=== PATIENT | female | born 1955 | race Caucasian/White ===

== ENCOUNTER 2023-07-17 08:24 | Outpatient (OUT) | payer MEDICARE, BC, SELFPAY ==
[2023-07-17 08:37] LABS: Basophils Percent Auto 0.5 % (0.2-2.0); Eosinophils Absolute Auto 0.1 10^3/uL (0.0-0.7); Eosinophils Percent Auto 0.9 % (0.9-7.0); Immature Granulocytes Abs Auto 0.02 10^3/uL (0.00-0.03); Immature Granulocytes Pct Auto 0.2 % (0.0-0.5); Lymphocytes Absolute Auto 3.8 10^3/uL (1.2-3.8); Lymphocytes Percent Auto 43.5 % (20.5-60.0); Mean Corpuscular HGB Conc 32.6 g/dL (29.9-35.2); Mean Corpuscular Hemoglobin 30.8 pg (26.7-34.0); Mean Corpuscular Volume 94.5 fL (81.0-99.0); Monocytes Absolute Auto 0.9 10^3/uL (0.3-0.8); Monocytes Percent Auto 9.9 % (1.7-12.0); Platelet Count 252 10^3/uL (150-450); Red Blood Count 4.55 10^6/uL (4.20-5.40); Red Cell Distribution Width 12.9 % (11.0-15.0); White Blood Count 8.8 10^3/uL (4.0-11.0)
--- NOTE | 2023-07-17 08:37 | MM_ITS ---
Patient: SAGAR LOZA Exam Date: 07/17/2023 : 1955 Gender:F Ordering : DR. NAIF JACOBS . Admission #: [id number] Family : Order #: [id number] CLICK HERE TO VIEW EXAM RADIOLOGY REPORT PROCEDURE: MM TOMOSYNTHESIS SCREENING BI COMPARISON: MG MAMM SCREEN 3D LUCAS CAD, 07/10/2022. MG MAMM SCREEN 3D LUCAS CAD, 07/06/2021. MG MAMM SCREEN LUCAS W CAD, 06/22/2020. MG MAMM LUCAS SCRN W CAD DIG, 02/17/2014. INDICATIONS: Screening Calculator Name NCI Breast Cancer Risk Assessment Tool 5 Year Breast Cancer Risk 3.20% Lifetime Breast Cancer Risk 9.10% Personal Breast Cancer No Personal Ovarian Cancer No Treatments None Family Cancers Sister with breast cancer at age 64. LOCATION: [facility] BREAST COMPOSITION: Almost entirely fatty. FINDINGS: DIAGNOSTIC CATEGORY 1--NEGATIVE. RIGHT BREAST: No significant suspicious finding. No significant change has occurred. LEFT BREAST: No significant suspicious finding. No significant change has occurred. RECOMMENDATIONS: ROUTINE MAMMOGRAM AND CLINICAL EVALUATION IN 12 MONTHS. PLEASE NOTE: A NORMAL MAMMOGRAM DOES NOT EXCLUDE THE POSSIBILITY OF BREAST CANCER. A CLINICALLY SUSPICIOUS PALPABLE LUMP SHOULD BE BIOPSIED. Dictated by: Arie Hartley M.D. on 07/17/2023 at 15:41 Approved by: Arie Hartley M.D. on 07/17/2023 at 15:44
[2023-07-17 09:36] LABS: Alanine Aminotransferase 18 U/L (14-59); Albumin Level 3.7 g/dL (3.4-5.0); Alkaline Phosphatase 59 U/L (46-116); Anion Gap 8.7; Aspartate Amino Transferase 16 U/L (15-37); BUN Creatinine Ratio 9.2; Bilirubin Total 0.4 mg/dL (0.2-1.0); Calcium 9.2 mg/dL (8.5-10.1); Carbon Dioxide 31.9 mmol/L (21.0-32.0); Chloride 100 mmol/L (98-107); Chol HDL Ratio 2.8; Cholesterol 141 mg/dL (<=200); Estimated GFR (African America 54 (>=60); Estimated GFR (Non-African Ame 45 (>=60); Globulin 3.7 g/dL; Glucose 100 mg/dL (74-106); HDL Cholesterol 51 mg/dL (40-60); Potassium 3.6 mmol/L (3.5-5.1); Sodium 137 mmol/L (136-145); Total Protein 7.4 g/dL (6.4-8.2); Triglycerides 105 mg/dL (<=150)
== END 2023-07-17 08:25 | disposition home or self-care (01) ==
LOC: LAB 08:24
PROVIDERS: PCP Family Medicine; Visit Provider Family Medicine
DX: Z00.00 Encounter for general adult medical examination without abnormal findings (principal); I48.91 Unspecified atrial fibrillation; I10 Essential (primary) hypertension; Z12.31 Encounter for screening mammogram for malignant neoplasm of breast; Z80.3 Family history of malignant neoplasm of breast
CPT/HCPCS: 36415; 77063; 77067; 80053; 80061; 83735; 85025

== ENCOUNTER 2024-07-20 08:42 | Outpatient (OUT) | payer MEDICARE, BC, SELFPAY ==
--- NOTE | 2024-07-20 | MM_ITS ---
Patient Name: SAGAR LOZA MR#: [id number] : 1955 Exam Date: 07/20/2024 Ordering Doctor: DR. NAIF JACOBS . RADIOLOGY REPORT PROCEDURE: MM TOMOSYNTHESIS SCREENING BI COMPARISON: MG MAMM SCREEN 3D LUCAS CAD, 07/10/2022. MM TOMOSYNTHESIS SCREENING BI, 07/17/2023. INDICATIONS: SCREENING Calculator Name NCI Breast Cancer Risk Assessment Tool 5 Year Breast Cancer Risk 3.20% Lifetime Breast Cancer Risk 8.70% Personal Breast Cancer No Personal Ovarian Cancer No Treatments None Family Cancers Sister with breast cancer at age 64. LOCATION: [facility] BREAST COMPOSITION: The breasts are almost entirely fatty. FINDINGS: DIAGNOSTIC CATEGORY 1--NEGATIVE. NO CHANGE FROM COMPARISON ASSESSMENT. Scattered benign-appearing calcifications are present. Scattered benign-appearing lymph nodes are present. RIGHT BREAST: No significant suspicious finding. LEFT BREAST: No significant suspicious finding. RECOMMENDATIONS: ROUTINE MAMMOGRAM AND CLINICAL EVALUATION IN 12 MONTHS. PLEASE NOTE: A NORMAL MAMMOGRAM DOES NOT EXCLUDE THE POSSIBILITY OF BREAST CANCER. A CLINICALLY SUSPICIOUS PALPABLE LUMP SHOULD BE BIOPSIED. Dictated by: Naun Roldan MD on 07/20/2024 at 12:43 Approved by: Naun Roldan MD on 07/20/2024 at 12:44
[2024-07-20 10:22] LABS: Alanine Aminotransferase 23 U/L (14-59); Albumin Level 3.6 g/dL (3.4-5.0); Alkaline Phosphatase 56 U/L (46-116); Anion Gap 11.9; Aspartate Amino Transferase 22 U/L (15-37); BUN Creatinine Ratio 11.9; Bilirubin Total 0.5 mg/dL (0.2-1.0); Calcium 8.9 mg/dL (8.5-10.1); Chloride 104 mmol/L (98-107); Chol HDL Ratio 2.8; Cholesterol 152 mg/dL (<=200); Estimated GFR (African America >60 (>=60); Estimated GFR (Non-African Ame 54 (>=60); Globulin 3.6 g/dL; Glucose 102 mg/dL (74-106); HDL Cholesterol 55 mg/dL (40-60); Potassium 3.9 mmol/L (3.5-5.1); Sodium 141 mmol/L (136-145); Total Protein 7.2 g/dL (6.4-8.2); Triglycerides 80 mg/dL (<=150)
== END 2024-07-20 08:43 | disposition home or self-care (01) ==
LOC: MAMMO 08:42
PROVIDERS: PCP Family Medicine; Visit Provider Family Medicine
DX: Z12.31 Encounter for screening mammogram for malignant neoplasm of breast (principal); Z13.6 Encounter for screening for cardiovascular disorders; I10 Essential (primary) hypertension; Z80.3 Family history of malignant neoplasm of breast
CPT/HCPCS: 36415; 77063; 77067; 80053; 80061

== ENCOUNTER 2024-09-13 08:55 | Outpatient (OUT) | payer MEDICARE, BC, SELFPAY ==
[2024-09-13 09:50] LABS: Anion Gap 13.4; BUN Creatinine Ratio 11.4; Calcium 9.2 mg/dL (8.5-10.1); Carbon Dioxide 29.6 mmol/L (21.0-32.0); Chloride 104 mmol/L (98-107); Estimated GFR (African America 57 (>=60 mL/min/1.73m^2); Estimated GFR (Non-African Ame 47 (>=60 mL/min/1.73m^2); Glucose 106 mg/dL (74-106); Sodium 143 mmol/L (136-145)
== END 2024-09-13 08:56 | disposition home or self-care (01) ==
LOC: LAB 08:55
DX: I48.91 Unspecified atrial fibrillation (principal)
CPT/HCPCS: 36415; 80048

== ENCOUNTER 2025-07-27 08:52 | Outpatient (OUT) | payer MEDICARE, BC, SELFPAY ==
--- OUTSIDE RECORDS SUMMARY | 2025-07-27 08:54 | XMS_ITS | Encounter Summary ---
Author Organization [employer] Address [facility] [id number] [address] [place] [address] Care Team Providers Care Bottling Line Operator Name Role Phone Trina Hansen MD Primary Care Provider [phone] Encounter Details Date Type Department Care Team (Late st Contact Info) Description 10/15/2021 Orders Only [facility] [address] [facility] [address] [place] [id number] External, Scanning Provider Social History Tobacco Use Types Packs/Day Years Used Date Smoking Tobacco: Former Smokeless Tobacco: Never Alcohol Use Standard Drinks/Week Comments Yes 0 (1 standard drink = 0.6 oz pur e alcohol) moderate Childcare Answer Date Recorded Childcare Unknown 04/12/2019 Employment Answer Date Recorded Employment Unknown 04/12/2019 Purpose - Life Answer Date Recorded Purpose and direction in life Unknown Comments No Sex and Gender Information Value Date Recorded Sex Assigned at Not on file Legal Sex Female 11:57 AM EDT Gender Identity Not on file Sexual Orientation Not on file COVID-19 Exposure Response Date Recorded In the last month, have you been in contact with someone who was confirmed or suspected to have Coronavirus / COVID-19? No / Unsure 10/16/2021 9:38 AM EST documented as of this encounter Plan of Treatment Not on file documented as of this encounter Procedures Procedure Name Priority Date/Time Associated Diagnosis Comments MULTIPLE LABS Routine 07/06/2021 documented in this encounter Results * Multiple labs (07/06/2021) 07/06/2021 us Scanning Provider External [place] [facility] Final Result MANUALLY TRANSCRIBED RESULTS documented in this encounter Visit Diagnoses Not on filedocumented in this encounter Care Teams Bottling Line Operator Relationship Specialty Start Date End Date Trina Hansen MD PCP - General Family Medicine 07/31/17 documented as of this encounter
--- OUTSIDE RECORDS SUMMARY | 2025-07-27 08:54 | XMS_ITS | Clinical Summary ---
Author Organization [employer] [facility] Address [id number] [address] [place] [address] Care Team Providers Care Associate Material Handler Name Role Phone Trina Hansen MD Primary Care Provider [phone] Allergies Active Allergy Reactions Criticality Noted Date Comments Penicillins 07/07/2015 Other reaction(s): Intolerance-unknown Medications cetirizine (ZyrTEC) 10 mg tablet Take 10 mg by mouth daily. Active atorvastatin (LIPITOR) 10 mg tablet Take 10 mg by mouth daily. Active acetaminophen (TYLENOL) 325 mg tablet Take 650 mg by mouth every 6 (six) hours as needed. Active multivitamin tablet,chewable daily. Acti ve bisoprolol-hydroC HLOROthiazide (ZIAC) 5-6.25 mg per tablet Take 1 tablet by mouth every morning before breakfast. 8 Active glucosamine/methy lsulfonylmeth (GLUCOSAMINE MSM ORAL) Take 1,500 mg by mouth daily. Active apixaban (ELIQUIS) 5 mg tabletIndications :Paroxysmal atrial fibrillation (CMS-HCC),Encount er for therapeutic drug monitoring Take 1 tablet (5 mg total) by mouth every 12 (twelve) hours. 180 tablet 2 3 Active apixaban (ELIQUIS) 5 mg tabletIndications :Paroxysmal atrial fibrillation (CMS-HCC),Encount er for therapeutic drug monitoring Take 1 tablet (5 mg total) by mouth every 12 (twelve) hours. 180 tablet 3 3 Active Active Problems Problem Noted Date Diagnosed Date CHANDA (obstructive sleep apnea) 10/15/2022 Paroxysmal atrial fibrillation 08/09/2019 Cerebrovascular disease 07/11/2015 Status post placement of implantable loop record er 07/07/2015 Class 2 obesity in adult Family History Medical History Relation Name Comments Heart disease Father Relation Name Status Comments Father Mother Social History Tobacco Use Types Packs/Day Years Used Date Smoking Tobacco: Former Smokeless Tobacco: Never Tobacco Cessation:Counseling Given: Not Answered Alcohol Use Standard Drinks/Week Comments Yes 0 (1 standard drink = 0.6 oz pur e alcohol) moderate Childcare Answer Date Recorded Childcare Unknown 04/12/2019 Employment Answer Date Recorded Employment Unknown 04/12/2019 Hunger Screening Answer Date Recorded Within the past 12 months we worried whether our food would run out before we got money to buy more. Never True 10/15/2022 Within the past 12 months th e food we bought just didn't last and we didn't have money to get more. Never True 10/15/2022 Purpose - Life Answer Date Recorded Purpose and direction in life Unknown Comments No Sex and Gender Information Value Date Recorded Sex Assigned at Not on file Legal Sex Female 11:57 AM EDT Gender Identity Not on file Sexual Orientation Not on file Last Filed Vital Signs Vital Sign Reading Time Taken Comments Blood Pressure 132/76 10/15/2022 2:34 PM EST Pulse 84 10/15/2022 2:34 PM EST Temperature - - Respiratory Rate 16 10/14/2018 10:1 1 AM EST Oxygen Saturation 96% 10/15/2022 2:34 PM EST Inhaled Oxygen Concentration - - Weight 104.6 kg (230 lb 9.6 oz) 10/15/2022 2:34 PM EST Height 160 cm (5' 3 ) 10/15/2022 2:34 PM EST Body Mass Index 40.85 10/15/2022 2:34 PM EST Plan of Treatment Health Maintenance Due Date Last Done Comments Depression Screening 1967 Tobacco Screening 1967 DTaP,Tdap and Td Vaccines (1 - Tdap) 1972 Fall Risk Screening 2018 Adult BMI Screening 10/15/2023 10/15/2022 COVID-19 Vaccine (6 2024-2 6 season) 2025 08/02/2022, 02/05/2022, 07/31/2021, Additional history exists Influenza Vaccine 07/04/2025 08/21/2021, , 07/28/2019, Additional history exists Zoster (Shingles) Vaccine Completed 2019, 05/19/2020, 04/20/2014 Medical Devices Not on file Insurance MEDICARE Care Teams Associate Material Handler Relationship Specialty Start Date End Date Trina Hansen MD PCP - General Family Medicine 07/31/17
--- OUTSIDE RECORDS SUMMARY | 2025-07-27 08:54 | XMS_ITS | Encounter Summary ---
Author Organization [facility] [employer] [facility] [employer] Address [id number] [address] [place] [address] Care Team Providers Care Lead Pressman [employer] Name Role Phone Trina Hansen MD Primary Care Provider [phone] Encounter Details Date Type Department Care Team (Late st Contact Info) Description 10/18/2021 Orders Only [facility] [address] [place] [phone] External, Scanning Provider Social History Tobacco Use [...] this encounter Results * Multiple labs (07/06/2021) us Scanning Provider External [place] [facility] Final Result MANUALLY TRANSCRIBED RESULTS documented in this encounter Visit Diagnoses Not on filedocumented in this encounter Care Teams Lead Pressman [employer] Relationship Specialty Start Date End Date Trina Hansen MD PCP - General Family Medicine 07/31/17 documented as of this encounter
--- OUTSIDE RECORDS SUMMARY | 2025-07-27 08:54 | XMS_ITS | Patient Health Record ---
Author Organization [facility] [place] Address [address] [place] [address] Care Team Providers Care Cdl Truck Driver Name Role Phone Tryone PEPPER, Trina Primary Care Provider Unavailabl e Reason For Referral No Information Plan Of Treatment No Information Insurance Providers Payer Name Payer Address Payer Phone Subscriber Number Group Number Insured Name Patient Relationship to Insured Coverage Start Date Coverage End Date [employer] [address] [place] [address] [id number] Balwinder Mcdaniel Spouse - patient is the spouse of the insured
--- OUTSIDE RECORDS SUMMARY | 2025-07-27 08:54 | XMS_ITS | Encounter Summary ---
Author Organization [employer] Address [id number] [address] [place] [address] Care Team Providers Care Supervisor [place] Name Role Phone Trina Hansen MD Primary Care Provider [phone] Encounter Details Date Type Department Care Team (Late st Contact Info) Description 08/12/2022 Orders Only [facility] [address] [place] [address] External, Scanning Provider Social History Tobacco Use [...] on file Sexual Orientation Not on file documented as of this encounter Plan of Treatment Not on file documented as of this encounter Procedures Procedure Name Priority Date/Time Associated Diagnosis Comments MULTIPLE LABS Routine 07/10/2022 LIPID PROFILE Routine 07/10/2022 documented in this encounter Results * Lipid profile (07/10/2022) External Cholesterol 161 MANUALLY TRANSCRIBED RESULTS External Cholesterol:Hdl 3.1 MANUALLY TRANSCRIBED RESULTS External Hdl Cholesterol 52 MANUALLY TRANSCRIBED RESULTS External Ldl (Calc) 86 MANUALLY TRANSCRIBED RESULTS External Triglycerides 112 MANUALLY TRANSCRIBED RESULTS External Very Low Lipoprotein 22 MANUALLY TRANSCRIBED RESULTS us Scanning Provider External LAB BLOOD ORDERABLES Edited Result - Final MANUALLY TRANSCRIBED RESULTS * Multiple labs (07/10/2022) us Scanning Provider External [place] [facility] Final Result Performing Organization Address [facility] Co de Phone Number MANUALLY TRANSCRIBED RESULTS documented in this encounter Visit Diagnoses Not on filedocumented in this encounter Care Teams Supervisor [place] Relationship Specialty Start Date End Date Trina Hansen MD PCP - General Family Medicine 07/31/17 documented as of this encounter
--- NOTE | 2025-07-27 08:56 | MM_ITS ---
Patient Name: SAGAR LOZA MR#: [id number] : 1955 Exam Date: 07/27/2025 Ordering Doctor: JYOTI MCDONALD . RADIOLOGY REPORT PROCEDURE: MM TOMOSYNTHESIS SCREENING BI COMPARISON: MM TOMOSYNTHESIS SCREENING BI, 07/20/2024. MM TOMOSYNTHESIS SCREENING BI, 07/17/2023. MG MAMM SCREEN 3D LUCAS CAD, 07/10/2022. MG MAMM LUCAS SCRN W CAD DIG, 02/17/2014. INDICATIONS: Screening Calculator Name NCI Breast Cancer Risk Assessment Tool 5 Year Breast Cancer Risk 3.20% Lifetime Breast Cancer Risk 8.30% Personal Breast Cancer No Personal Ovarian Cancer No Treatments None Family Cancers Sister with breast cancer at age 64. LOCATION: [facility] BREAST COMPOSITION: The breasts are almost entirely fatty. FINDINGS: RIGHT BREAST: No significant suspicious finding. Benign-appearing calcifications are present. LEFT BREAST: No significant suspicious finding. Benign-appearing calcifications are present. DIAGNOSTIC CATEGORY 2--BENIGN FINDING. NO CHANGE FROM COMPARISON. RECOMMENDATIONS: ROUTINE MAMMOGRAM AND CLINICAL EVALUATION IN 12 MONTHS. Dictated by: Fortunato Lacy MD on 07/27/2025 at 11:20 Approved by: Fortunato Lacy MD on 07/27/2025 at 11:27
--- OUTSIDE RECORDS SUMMARY | 2025-07-27 08:56 | XMS_ITS | CCD ---
Author Organization [facility] Care Team Providers Care Shutdown Coordinator Name Role Phone ALICJA, DR MAURICE Gutierrez Primary Care Unavailable ALICJA, DR MAURICE Gutierrez Admitting Unavailable HELM, DR MAURICE Gutierrez Attending Unavailable HELM, DR MAURICE Gutierrez Primary Care Unavailable HELM, DR MAURICE Gutierrez Admitting Unavailable HELM, DR MAURICE Gutierrez Attending Unavailable HELM, DR MAURICE Gutierrez Attending Unavailable HELM, DR MAURICE Gutierrez Consulting Unavailable ALICJA, DR MAURICE Gutierrez Primary Care Unavailable ALICJA, DR MAURICE Gutierrez Admitting Unavailable Gopal Yates. Primary Care Physician [phone] Essence Prather Attending Unavailable CrescencioEssence alvarez Admitting Unavailable Gopal Yates Attending Unavailable Gopal Yates Attending Unavailable Gopal Yates Attending Unavailable Gopal Yates Attending Unavailable CrescencioEssence Attending Unavailable CrescencioEssence Attending Unavailable CrescencioEssence Attending Unavailable CrescencioEssence Attending Unavailable NONE, XXXX Referring Unavailable Kirit Degroot Admitting Unavailable Kirit Degroot Attending Unavailable Roger Hdz Attending Unavailable Gopal Yates Referring Unavailable Essence Prather Admitting Unavailable Essence Prather Attending Unavailable Gopal Yates Attending Unavailable Allergies Allergy Classification Reported Allergen(s) Allergy Type Date of Onset Reaction(s) Facility (5 sources) Penicillin; Translations: [penicillin] Drug Allergy Eruption of skin (disorder) [facility] Repository Medications Current Medications Medication Drug Class(es) Dates Sig (Normalized) Sig (Original) apixaban 5 mg oral tablet (2 sources) Factor Xa Inhibitor Start: 08-17-2024 take 1 tablet by mouth twice daily Eliquis 5 mg oral tablet See Instructions, TAKE 1 TABLET BY MOUTH TWICE DAILY, # 180 tab(s), Refills(s) 1, Pharmacy: [facility], 163, cm, 10/15/24 13:57:00 EDT, Height/Length Dosing, 112.2, kg, 08/17/24 13:57:00 EDT, Weight Dosing Start Date: 08/17/24 Status: Ordered Start: 12-02-2023 take 1 tablet by norah th twice daily Eliquis 5 mg oral tablet See Instructions, TAKE 1 TABLET BY MOUTH TWICE DAILY, # 180 tab(s), Refills(s) 3, Pharmacy: [facility], 163, cm, 07/14/23 16:21:00 EDT, Height/Length Dosing, 105, kg, 07/14/23 16:21:00 EDT, Weight Dosing Start Date: 12/02/23 Status: Ordered atorvastatin 10 mg oral tablet (2 sources) HMG-CoA Reductase Inhibitor Start: 08-17-2024 take 1 tablet by mouth once daily atorvastatin 10 mg Tab 10 mg = 1 tab(s), Oral, Daily, # 90 tab(s), Refills(s) 1, Pharmacy: [facility], 163, cm, 08/17/24 13:57:00 EDT, Height/Length Dosing, 112.2, kg, 08/17/24 13:57:00 EDT, Weight Dosing Start Date: 08/17/24 Status: Ordered Start: 02-03-2024 take 1 tablet by [facility] once daily atorvastatin 10 mg Tab 10 mg = 1 tab(s), Oral, Daily, # 90 tab(s), Refills(s) 4, Pharmacy: [facility], 163, cm, 07/14/23 16:21:00 EDT, Height/Length Dosing, 105, kg, 07/14/23 16:21:00 EDT, Weight Dosing Start Date: 02/03/24 Status: Ordered bisoprolol fumarate 5 mg / hydroCHLOROthiazide 6.25 mg oral tablet (2 sources) Thiazide Diuretic, beta-Adrenergic Loree Start: 08-17-2024 take 1 tablet by mouth once daily bisoprolol-hydrochlorothiazide 5 mg-6.25 mg Tab 1 tab(s), Oral, Daily, 90 tab(s), Refill(s) 1, [facility], 163, cm, 08/17/24 13:57:00 EDT, Height/Length Dosing, 112.2, kg, 08/17/24 13:57:00 EDT, Weight Dosing Start Date: 08/17/24 Status: Ordered Start: 08-11-2023 take 1 tablet by norah once daily bisoprolol-hydrochlorothiazide 5 mg-6.25 mg Tab 1 tab(s), Oral, Daily, 90 tab(s), Refill(s) 4, [facility], 163, cm, 07/14/23 16:21:00 EDT, Height/Length Dosing, 105, kg, 07/14/23 16:21:00 EDT, Weight Dosing Start Date: 08/11/23 Status: Ordered Zyrtec (2 sources) Histamine-1 Receptor Antagonist Start: 07-14-2023 Zyrtec 10 mg, Daily, Refills(s) 0 Start Date: 07/14/23 Status: Ordered Chondroitin Sulfates / Glucosamine (2 sources) Start: 07-14-2023 take 1 capsule by mouth twice daily Chondroitin-Gluco samine 1 cap(s), Oral, BID, Refill(s) 0 Start Date: 07/14/23 Status: Ordered losartan potassium 25 mg oral tablet (2 sources) Angiotensin 2 Receptor Loree Start: 09-15-2024 take 1 tablet by mouth once daily losartan 25 mg Tab 25 mg = 1 tab(s), Oral, Daily, # 90 tab(s), Refills(s) 3, Pharmacy: [facility], 163, cm, 09/15/24 9:07:00 EST, Height/Length Dosing, 111.2, kg, 09/15/24 9:07:00 EST, Weight Dosing Start Date: 09/15/24 Status: Ordered Start: 08-13-2024 take 1 tablet by norah once daily losartan 25 mg Tab 25 mg = 1 tab(s), Oral, Daily, # 30 tab(s), Refills(s) 3, Pharmacy: [facility], 163, cm, 08/13/24 13:04:00 EDT, Height/Length Dosing, 111.4, kg, 08/13/24 13:04:00 EDT, Weight Dosing Start Date: 08/13/24 Status: Ordered Multi Vitamin+ (2 sources) Start: 07-14-2023 Multi Vitamin+ 1, Daily, Refill(s) 0 Start Date: 07/14/23 Status: Ordered Problems Problem Classification Problem Date Documented Da te Episodic/Chronic Cardiac dysrhythmias (4 sources) Unspecified atrial fibrillation; Translations: [Atrial fibrillation] Onset: 07-18-2022 04-29-2023 Chronic Chronic kidney disease (4 sources) Chronic kidney disease stage 3; Translations: [Chronic kidney disease, stage 3 unspecified] Onset: 09-14-2024 07-17-2023 Chronic Comment on above: liked HTN with CKD p er OP CDI policy. Disorders of lipid metabolism (1 source) Hyperlipidemia, unspecified; Translations: [HYPERLIPIDEMIA UNSPECIFIED] Onset: 07-18-2022 Chronic Essential hypertension (4 sources) Essential (primary) hypertension; Translations: [Essential hypertension] Onset: 07-18-2022 Chronic Hypertension with complications and secondary hypertension (1 source) Chronic kidney disease due to hypertension; Translations: [Hypertensive chronic kidney disease with stage 1 through stage 4 chronic kidney disease, or unspecified chronic kidney disease] Onset: 09-14-2024 Chronic Other circulatory disease (1 source) Personal history of transient ischemic attack (TIA), and cerebral infarction without residual deficits; Translations: [PERS HX TIA AND CI NO RESID DEFICIT] Onset: 07-18-2022 Episodic Other nutritional; endocrine; and metabolic disorders (2 sources) Body mass index 40+ - severely obese 07-19-2024 Chronic Other nutritional; endocrine; and metabolic disorders (1 source) Morbid obesity 08-16-2024 Chronic Other screening for suspected conditions (not mental disorders or infectious disease) (4 sources) Encounter for screening mammogram for malignant neoplasm of breast; Translations: [ENC SCR MAMMO MALIG NEOPLASM BREAST] Onset: 07-10-2022 Episodic Residual codes; unclassified (4 sources) Obstructive sleep apnea (adult) (pediatric); Translations: [OBSTRUCTIVE SLEEP APNEA] Onset: 10-22-2021 Chronic Residual codes; unclassified (2 sources) Obstructive sleep apnea syndrome 04-29-2023 Chronic Residual codes; unclassified (1 source) Family history of malignant neoplasm of breast; Translations: [FAMILY HX MALIG NEOPLASM OF BREAST] Onset: 07-18-2022 Episodic Results Test Name Value Interpretation Reference Range Facility .Interpretation:on Interpretation: Comment Invalid Interpretation Code [facility] Comment on above: Result Comment: Not infected with HCV unless early or acute infection is suspected (which may be delayed in an immunocompromised individual), or other evidence exists to indicate HCV infection. Performed at: [facility] [id number] PhD Zoila Almonte Performed By: #### 2 [id number] #### [facility] [address] [place] [address] HCV Antibody RFX to Quant PC Bunny 07-23-2025 HCV Ab Non-Reactive Invalid Interpretation Code Non Reactive [facility] Comment on above: Result Comment: Perf ormed at: [facility] [id number] PhD Zoila Almonte Performed By: #### 2 [id number] #### [facility] [address] [place] [address] Reminderson 07-22-2025 Reminders Reminders From: Essence Stephens To: [facility] - Clinical; Sent: 07/22/2025 09:30:45 EDT Show up: 07/22/2025 09:31:00 EDT Subject: Ambulatory Reminder Due Date/Time: 07/23/2025 09:30:00 EDT labs are normal Results: Date Result Name Value Ref Range 07/21/2025 9:09 Glucose Lvl 97 mg/dL (55 - 199) 07/21/2025 9:09 BUN 18 mg/dL (5 - 21) 07/21/2025 9:09 Creatinine 1.0 mg/dL (0.5 - 1.3) 07/21/2025 9:09 eGFR 60 mL/min/1.73 m2 (>=59 - ) 07/21/2025 9:09 BUN/Creat Ratio 18 (10 - 20) 07/21/2025 9:09 Sodium Lvl 139 mmol/L (135 - 145) 07/21/2025 9:09 Potassium Lvl 4.0 mmol/L (3.5 - 5.3) 07/21/2025 9:09 Chloride 103 mmol/L (101 - 111) 07/21/2025 9:09 CO2 29 mmol/L (21 - 31) 07/21/2025 9:09 AGAP 11 mEq/L (6 - 16) 07/21/2025 9:09 Calcium Lvl 9.6 mg/dL (8.9 - 11.1) 07/21/2025 9:09 Alk Phos 52 Int._Unit/L (21 - 98) 07/21/2025 9:09 ALT 14 Int._Unit/L (6 - 46) 07/21/2025 9:09 AST 23 Int._Unit/L (5 - 43) 07/21/2025 9:09 Total Protein 7.3 gm/dL (6.0 - 7.8) 07/21/2025 9:09 Albumin Lvl 4.4 gm/dL (3.3 - 5.0) 07/21/2025 9:09 Globulin 2.9 gm/dL (1.4 - 4.0) 07/21/2025 9:09 A/G Ratio 1.5 (1.1 - 2.2) 07/21/2025 9:09 Bili Total 0.5 mg/dL (0.0 - 1.1) 07/21/2025 9:09 Chol 149 mg/dL (120 - 200) 07/21/2025 9:09 Trig 118 mg/dL ( - <=149) 07/21/2025 9:09 HDL 43 mg/dL 07/21/2025 9:09 LDL Direct 94 mg/dL ( - <=129) 07/21/2025 9:09 VLDL 24 mg/dL (7 - 40) left message to return our call, relay below message notified. Normal [facility] Ambulatory Visit Summaryon 0 07-21-2025 Ambulatory Visit Summary Ambulatory Visit Summary GRICEL LOZA :1955 Visit Date:07/21/2025 Ambulatory Visit Instructions Your Diagnosis Hypercholesteremia Benign hypertension with chronic kidney disease, stage III BMI 40.0-44.9, adult Atrial fibrillation Encounter for hepatitis C screening test for low risk patient Your Care Team Attending Physician - Essence Stephens Primary Care Physician - Essence Stephens This Is Your Medications List apixaban (Eliquis 5 mg oral tablet) atorvastatin (atorvastatin 10 mg Tab) bisoprolol-hydrochlorot hiazide (bisoprolol-hydrochloro thiazide 5 mg-6.25 mg Tab) cetirizine (Zyrtec) chondroitin-glucosamine (Chondroitin-Glucosamin e) losartan (losartan 50 mg Tab) multivitamin (Multi Vitamin+) Procedures Performed Colonoscopy (08/23/2021), Mammogram (07/06/2021), Cataract (11/03/2020), Breast reduction. Discharge Vitals Heart Rate (Peripheral) 72 Respiratory Rate 18 Blood Pressure 144/88 Height 163.0 cm Height 64 in Weight 111.7 kg Weight 246.256 lb BMI 42.04 What to do next Scheduled Follow-Up Appointments Friday 9:30 AM EDT With: Kirit Degroot PA-C Where: [facility] Friday2025 10:20 AM EDT With: Essence Stephens Where: [address] [id number]- Friday2025 8:00 AM EDT With: Where: [address] [id number]- Friday2025 8:40 AM EDT With: Essence Stephens Where: [address] [id number]- Medications What How Much When Instructions New atorvastatin (atorvastatin 10 mg Tab) 1 Tablets By Mouth Every day Duration: 90 Days Refills: 3 Pickup at [facility] New bisoprolol-hydrochlorot hiazide (bisoprolol-hydrochloro thiazide 5 mg-6.25 mg Tab) See instructions Refills: 3 TAKE 1 TABLET BY MOUTH DAILY Pickup at [facility] New losartan (losartan 50 mg Tab) 1 Tablets By Mouth Every day Duration: 90 Days Refills: 3 Pickup at [facility] Unchanged apixaban (Eliquis 5 mg oral tablet) See instructions TAKE 1 TABLET BY MOUTH TWICE DAILY Unchanged cetirizine (Zyrtec) 10 Milligram Every day Unchanged chondroitin-glucosamine (Chondroitin-Glucosamin e) 1 Capsules By Mouth 2 times a day Unchanged multivitamin (Multi Vitamin+) 1 Every day Pharmacy Information [facility]: [address] [facility] [address] [place], [place] [id number] [phone] Allergies penicillin (Rash) Problems Ongoing - Any problem that you are currently receiving treatment for. Atrial fibrillation Benign hypertension with chronic kidney disease, stage III BMI 40.0-44.9, adult CKD (chronic kidney disease), stage III Former smoker Hypercholesteremia Hypertension Morbid obesity with BMI of 40.0-44.9, adult Obesity, morbid, BMI 40.0-49.9 CHANDA (obstructive sleep apnea) Patient Survey You may receive a survey via text or e-mail asking about your office visit. Please share your experience with us by completing your survey. We appreciate your feedback and thank you for choosing us for your care. Patient Portal You may access all of your results and other medical record information on our secure patient portal. If you are not signed up for this yet, please contact [employer] at [phone] to get signed up today. Language Information Language assistance services are available as needed. Normal [facility] CMPon 07-21-2025 Albumin [Mass/Vol] 4.4 g/dL Normal 3.3-5.0 [facility] Comment on above: Performed By: #### 2 [id number] #### [facility] [address] [place] [address] Albumin/Globulin [Mass ratio] 1.5 {ratio} Normal 1.1-2.2 [facility] Comment on above: Performed By: #### 2 [id number] #### [facility] [address] [place] [address] Alk Phos 52 Int._Unit/L Normal 21-98 [facility] Comment on above: Performed By: #### 2 [id number] #### [facility] [address] [place] [address] ALT 14 Int._Unit/L Normal 6-46 [facility] Comment on above: Performed By: #### 2 [id number] #### [facility] [address] [place] [address] Anion gap [Moles/Vol] 11 mmol/L Normal 6-16 [facility] Comment on above: Performed By: #### 2 [id number] #### [facility] [address] [place] [address] AST 23 Int._Unit/L Normal 5-43 [facility] Comment on above: Performed By: #### 2 [id number] #### [facility] [address] [place] [address] Bili Total 0.5 mg/dL Normal 0.0-1.1 [facility] Comment on above: Performed By: #### 2 [id number] #### [facility] [address] [place] [address] BUN/Creat Ratio 18 No Units Normal 10-20 [facility] Comment on above: Performed By: #### 2 [id number] #### [facility] [address] [place] [address] Calcium [Mass/Vol] 9.6 mg/dL Normal 8.9-11.1 [facility] Comment on above: Performed By: #### 2 [id number] #### [facility] [address] [place] [address] Chloride [Moles/Vol] 103 mmol/L Normal 101-111 [facility] Comment on above: Performed By: #### 2 [id number] #### [facility] [address] [place] [address] CO2 [Moles/Vol] 29 mmol/L Normal 21-31 [facility] Comment on above: Performed By: #### 2 [id number] #### [facility] [address] [place] [address] Creatinine [Mass/Vol] 1.0 mg/dL Normal 0.5-1.3 [facility] Comment on above: Performed By: #### 2 [id number] #### [facility] [address] [place] [address] Globulin (S) [Mass/Vol] 2.9 g/dL Normal 1.4-4.0 [facility] Comment on above: Performed By: #### 2 [id number] #### [facility] [address] [place] [address] Glucose [Mass/Vol] 97 mg/dL Normal 55-199 [facility] Comment on above: Performed By: #### 2 [id number] #### [facility] [address] [place] [address] Potassium [Moles/Vol] 4.0 mmol/L Normal 3.5-5.3 [facility] Comment on above: Performed By: #### 2 [id number] #### [facility] [address] [place] [address] Protein [Mass/Vol] 7.3 g/dL Normal 6.0-7.8 [facility] Comment on above: Performed By: #### 2 [id number] #### [facility] [address] [place] [address] Sodium [Moles/Vol] 139 mmol/L Normal 135-145 [facility] Comment on above: Performed By: #### 2 [id number] #### [facility] [address] [place] [address] Urea nitrogen [Mass/Vol] 18 mg/dL Normal 5-21 [facility] Comment on above: Performed By: #### 2 [id number] #### [facility] [address] [place] [address] Family Medicine Office/Clini c Noteon 07-21-2025 Family Medicine Office/Clinic Note Family Medicine Office/Clinic Note HPI Staff Pt is here for Patient is here for follow up on hypertension. How often are you checking your blood pressure? sometimes What are your average readings? 136/ 75 Yearly BMP: _ History of Present Illness pt presents today for 6 month follow up. had AMW visit this morning Review of Systems PHQ Score Initial Depression Screen Score: 0 SCORE Physical Exam Vitals & Measurements HR: 72(Peripheral) RR: 18 BP: 144/88 SpO2: 98% HT: 163.0 cm HT: 64 in WT: 246.256 lb WT: 111.7 kg BMI: 42.04 General: alert, no acute distress ENMT: oral mucosa moist, no pharyngeal erythema or exudate Cardiovascular: regular rate and rhythm, normal peripheral perfusion Respiratory: Lungs CTA, respirations non labored Extremities: no deformity, no trauma Neurological: oriented x 4, LOC appropriate for age, CN II-XII intact, motor strength equal & normal bilaterally, speech normal Assessment/Plan 1. Hypercholesteremia (E78.00: Pure hypercholesterolemia, unspecified) pt is doing well denies needs at this time. will send refills. . lipid panel ordered. all questions answered. RTC 6 months Ordered: Complex E&M Add on G2211 Comprehensive Metabolic Panel E&M of Est. Patient Low 20-29 Min 88289 HCV Antibody RFX to Quant PCR Lab Specimen Collect 12038 Lipid Panel 2. Benign hypertension with chronic kidney disease, stage III (I12.9: Hypertensive chronic kidney disease with stage 1 through stage 4 chronic kidney disease, or unspecified chronic kidney disease) BP at goal in office today. at home runs 130's/70's. CMP ordered. Ordered: Complex E&M Add on G2211 Comprehensive Metabolic Panel E&M of Est. Patient Low 20-29 Min 75722 HCV Antibody RFX to Quant PCR Lipid Panel 3. BMI 40.0-44.9, adult (Z68.41: Body mass index [BMI] 40.0-44.9, adult) BMI education given Ordered: Complex E&M Add on G2211 E&M of Est. Patient Low 20-29 Min 75005 4. Atrial fibrillation (I48.91: Unspecified atrial fibrillation) stable. heart rate regular today Ordered: ADM OF SOC DTR G0136 Complex E&M Add on G2211 E&M of Est. Patient Low 20-29 Min 87180 Encounter for hepatitis C screening test for low risk patient (Z11.59: Encounter for screening for other viral diseases) hep c ordered Ordered: HCV Antibody RFX to Quant PCR Lab Specimen Collect 01138 Orders: atorvastatin, 10 mg = 1 tab(s), Oral, Daily, X 90 day(s), # 90 tab(s), Refills(s) 3, Pharmacy: [facility], 163, cm, 07/21/25 8:54:00 EDT, Height/Length Dosing, 111.7, kg, 07/21/25 8:54:00 EDT, Weight Dosing atorvastatin, 10 mg = 1 tab(s), Oral, Daily, # 90 tab(s), Refills(s) 1, Pharmacy: [facility], 163, cm, 03/17/25 13:15:00 EDT, Height/Length Dosing, 112.6, kg, 03/17/25 13:15:00 EDT, Weight Dosing bisoprolol-hydrochlorot hiazide, See Instructions, 90 EA, Refill(s) 3, TAKE 1 TABLET BY MOUTH DAILY, [facility], 163, cm, 07/21/25 8:54:00 EDT, Height/Length Dosing, 111.7, kg, 07/21/25 8:54:00 EDT, Weight Dosing bisoprolol-hydrochlorot hiazide, See Instructions, 90 tab(s), Refill(s) 3, TAKE 1 TABLET BY MOUTH DAILY, [facility], 163, cm, 02/15/25 12:40:00 EDT, Height/Length Dosing, 112, kg, 02/15/25 12:40:00 EDT, Weight Dosing losartan, 50 mg = 1 tab(s), Oral, Daily, X 90 day(s), # 90 tab(s), Refills(s) 3, Pharmacy: [facility], 163, cm, 07/21/25 8:54:00 EDT, Height/Length Dosing, 111.7, kg, 07/21/25 8:54:00 EDT, Weight Dosing losartan, 50 mg = 1 tab(s), Oral, Daily, # 90 tab(s), Refills(s) 1, Pharmacy: [facility], 163, cm, 03/17/25 13:15:00 EDT, Height/Length Dosing, 112.6, kg, 03/17/25 13:15:00 EDT, Weight Dosing 1126F Pain severity quantified; no pain present Advance Care Planning discussed and documented 1123F Annual alcohol misuse screening, 15 min G0442 Annual Depression Screening 15 min G0444 BD Bone Density DEXA Body Mass Index (BMI) documented 3008F Central Dual-energy X-Ray Absorptiometry (DXA) results documented 3095F Colorectal CA screening results documented and reviewed 3017F Current tobacco non-user 1036F Depression Screening Negative 3352F Functional status assessed 1170F Influenza immunization status assessed 1030F MA Mamm Screen w/CAD if perf and 3D Pj Medicare Subsequent Visit G0439 Medication list documented in medical record 1159F Most recent diastolic blood pressure 80-89 mm Hg 3079F Most recent systolic blood pressure >= 140 mm Hg 3077F Patient screen for fall risk: no falls in last year or 1 fall with no injury in last year 1101F Pneumococcus immunization status assessed 1022F Review of all meds by a prescribing practitioner or clinical pharmacist documented in EHR 1160F Screening mammography documented and reviewed 3014F Follow-up No qualifying data available Problem List/Past Medical History Ongoing Atrial fibrillation Benign hypertension with chronic kidney disease, stage III BMI 40.0-44.9, adult CKD (chronic kidney disease (more content not included)... Normal [facility] Comment on above: Result Comment: Elec tronically Signed By: Essence Stephens\.br\Date and Time Signed: 07/21/25 09:14 EDT Lipid Panelon 07-21-2025 Cholesterol [Mass/Vol] 149 mg/dL Normal 120-200 [facility] Comment on above: Performed By: #### 2 [id number] #### [facility] [address] [place] [address] Cholesterol in HDL [Mass/Vol] 43 mg/dL Invalid Interpretation Code [facility] Comment on above: Result Comment: '>= 60 LOW RISK' '<= 40 HIGH RISK' Performed By: #### 2 [id number] #### [facility] [address] [place] [address] Cholesterol in LDL [Mass/Vol] 94 mg/dL Normal <=129 [facility] Comment on above: Performed By: #### 2 [id number] #### [facility] [address] [place] [address] Cholesterol in VLDL [Mass/Vol] 24 mg/dL Normal 7-40 [facility] Comment on above: Performed By: #### 2 [id number] #### [facility] [address] [place] [address] Triglyceride [Mass/Vol] 118 mg/dL Normal <=149 [facility] Comment on above: Performed By: #### 2 [id number] #### [facility] [address] [place] [address] eGFRon 07-21-2025 eGFR 60 mL/min/1.73 m2 Normal >=59 [facility] Comment on above: Performed By: #### 1 [id number] #### [facility] [address] [place] [address] Family Medicine Office/Clini c Noteon 03-17-2025 Family Medicine Office/Clinic Note Family Medicine Office/Clinic Note Chief Complaint BP Recheck Patient presents for medication adjustment for hypertension. HPI Staff 1m follow up to elevated BP Recommended pt take BP 3x/day @ home @ [facility]. Does have log with her today. History of Present Illness - The patient is a 69-year-old female presenting with hypertension. - Reports episodic blood pressure elevations. - Currently taking 25 mg losartan. - Blood pressure concerns, especially under stress. - No palpitations from atrial fibrillation noted. - Management and follow-up for hypertension discussed. Review of Systems PHQ Score Initial Depression Screen Score: 0 SCORE Physical Exam Vitals & Measurements T: 36.8 ???C(Tympanic) HR: 70(Peripheral) RR: 20 BP: 138/88 SpO2: 97% HT: 64 in HT: 163 cm WT: 112.6 kg WT: 248.24 lb BMI: 42.38 General: alert, no acute distress ENMT: oral mucosa moist Cardiovascular: normal peripheral perfusion Respiratory: respirations non labored Extremities: no deformity, no trauma Neurological: oriented x 4, level of consciousness appropriate for age, CN II-XII intact, motor strength equal & normal bilaterally, speech normal Assessment/Plan 1. Atrial fibrillation (I48.91: Unspecified atrial fibrillation) - Continue monitoring, no palpitations currently. - Follow-ups with Dr. Be Degroot continue. 2. Hypertension (I10: Essential (primary) hypertension) - Increase losartan to 50 mg daily. - Monitor blood pressure; report readings above 140 mmHg. - Follow-up in 30-90 days. 3. BMI 40.0-44.9, adult (Z68.41: Body mass index [BMI] 40.0-44.9, adult) - BMI education added 4. Former smoker (Z87.891: Personal history of nicotine dependence) - Please continue to not smoke. 5. Obesity, morbid, BMI 40.0-49.9 (E66.01: Morbid (severe) obesity due to excess calories) - Discussed impact of stress on blood pressure. - No new interventions planned; ongoing weight management. Ordered: Body Mass Index (BMI) documented 3008F Current tobacco non-user 1036F Depression Screening Negative 3352F Discharge medications reconciled with current medications in outpatient record 1111F Influenza immunization status assessed 1030F Medication list documented in medical record 1159F Most recent diastolic blood pressure 80-89 mm Hg 3079F Patient screen for fall risk: no falls in last year or 1 fall with no injury in last year 1101F Review of all meds by a prescribing practitioner or clinical pharmacist documented in EHR 1160F Systolic BP 130-139 mm Hg (Most Recent) 3075F Orders: losartan, 50 mg = 1 tab(s), Oral, Daily, # 90 tab(s), Refills(s) 0, Pharmacy: [facility], 163, cm, 03/17/25 13:15:00 EDT, Height/Length Dosing, 112.6, kg, 03/17/25 13:15:00 EDT, Weight Dosing - Increase losartan dosage to 50 mg for hypertension management. - Plan for 30-day follow-up with potential extension to 90 days. - 69-year-old female with history of essential hypertension and atrial fibrillation presenting with hypertension concerns. - Blood pressure suboptimally controlled. - Losartan dose to be increased. - No new arrhythmia symptoms. During the visit, I discussed with the patient the need to increase her losartan dosage from 25 mg to 50 mg to better manage her blood pressure, especially during stressful periods. We agreed on a follow-up plan in 30 days to evaluate the efficacy of the increased dosage, with an optional extension to 90 days to accommodate her schedule. The patient was advised to monitor her blood pressure at home and report any readings above 140 mmHg. I reassured her about her current stable status regarding atrial fibrillation, noting the absence of palpitations, and encouraged her to continue follow-ups with her second floor operator, Dr. Be Degroot. Additionally, we talked about the importance of managing her stress levels as an aspect of controlling her blood pressure and avoiding exacerbations of her cardiovascular issues. Follow-up No qualifying data available Problem List/Past Medical History Ongoing Atrial fibrillation Benign hypertension with chronic kidney disease, stage III BMI 40.0-44.9, adult CKD (chronic kidney disease), stage III Former smoker Hypertension Obesity, morbid, BMI 40.0-49.9 CHANDA (obstructive sleep apnea) Historical No qualifying data Procedure/Surgical History Colonoscopy (08/23/2021), Mammogram (07/06/2021), Cataract (11/03/2020), Breast reduction. Medications atorvastatin 10 mg Tab, 10 mg= 1 tab(s), Oral, Daily, 1 refills bisoprolol-hydrochlorot hiazide 5 mg-6.25 mg Tab, See Instructions Chondroitin-Glucosamine , 1 cap(s), Oral, BID Eliquis 5 mg oral tablet, See Instructions losartan 50 mg Tab, 50 mg= 1 tab(s), Oral, Daily Multi Vitamin+, 1, Daily Zyrtec, 10 mg, Daily Allergies penicillin (Rash) Social History Alcohol Never., 08/17/2024 Substance Abuse - Denies Substance Abuse, 07/19/2024 Never., 08/17/2024 Tobacco - No Risk, 04/29/2023 For (more content not included)... [facility] Comment on above: Result Comment: Elec tronically Signed By: Gopal Yates MD\.br\Date and Time Signed: 03/17/25 13:40 EDT Ambulatory Visit Summaryon 0 02-15-2025 Ambulatory Visit Summary Ambulatory Visit Summary GRICEL LOZA :1955 Visit Date:02/15/2025 Ambulatory Visit Instructions Your Diagnosis Atrial fibrillation BMI 40.0-44.9, adult CKD (chronic kidney disease), stage III Morbid obesity, Obesity, morbid, BMI 40.0-49.9 Hypertension CHANDA (obstructive sleep apnea) Former smoker Your Care Team Attending Physician - Gopal Yates MD Primary Care Physician - Gopal Yates MD This Is Your Medications List apixaban (Eliquis 5 mg oral tablet) atorvastatin (atorvastatin 10 mg Tab) bisoprolol-hydrochlorot hiazide (bisoprolol-hydrochloro thiazide 5 mg-6.25 mg Tab) cetirizine (Zyrtec) chondroitin-glucosamine (Chondroitin-Glucosamin e) losartan (losartan 25 mg Tab) multivitamin (Multi Vitamin+) Procedures Performed Colonoscopy (08/23/2021), Mammogram (07/06/2021), Cataract (11/03/2020), Breast reduction. Discharge Vitals Temperature (Tympanic) 36.8 ???C Heart Rate (Peripheral) 68 Respiratory Rate 18 Blood Pressure 149/94 Height 163 cm Height 64 in Weight 112 kg Weight 246.917 lb BMI 42.15 What to do next Scheduled Follow-Up Appointments 2024 1:20 PM EDT With: Gopal Yates MD Where: [address] [id number]- 2024 8:00 AM EDT With: Where: [address] [address]- 2024 8:45 AM EDT With: Gopal Yates MD Where: [address] [address]- Friday 9:30 AM EDT With: Kirit Degroot PA-C Where: [facility] Medications What How Much When Instructions Unchanged apixaban (Eliquis 5 mg oral tablet) See instructions TAKE 1 TABLET BY MOUTH TWICE DAILY Unchanged atorvastatin (atorvastatin 10 mg Tab) 1 Tablets By Mouth Every day Unchanged bisoprolol-hydrochlorot hiazide (bisoprolol-hydrochloro thiazide 5 mg-6.25 mg Tab) 1 Tablets By Mouth Every day Unchanged cetirizine (Zyrtec) 10 Milligram Every day Unchanged chondroitin-glucosamine (Chondroitin-Glucosamin e) 1 Capsules By Mouth 2 times a day Unchanged losartan (losartan 25 mg Tab) 1 Tablets By Mouth Every day Unchanged multivitamin (Multi Vitamin+) 1 Every day Allergies penicillin (Rash) Problems Ongoing - Any problem that you are currently receiving treatment for. Atrial fibrillation Benign hypertension with chronic kidney disease, stage III BMI 40.0-44.9, adult CKD (chronic kidney disease), stage III Former smoker Hypertension Morbid obesity Obesity, morbid, BMI 40.0-49.9 CHANDA (obstructive sleep apnea) Patient Survey You may receive a survey via text or e-mail asking about your office visit. Please share your experience with us by completing your survey. We appreciate your feedback and thank you for choosing us for your care. Krista Yost [facility] Family Medicine Office/Clini c Noteon 02-15-2025 Family Medicine Office/Clinic Note Family Medicine Office/Clinic Note Chief Complaint 6m follow up Elevated blood pressure at home HPI Staff 6m follow up Patient is here for follow up on hypertension. How often are you checking your blood pressure? _occasionally What are your average readings? _140/90 Yearly BMP: _ 09/13/24 @ [facility] Last [facility] visit 09/15/24 No refills needed at this time. History of Present Illness The patient is a 69 year old female presenting with elevated blood pressure readings at home. Stress levels are contributing factors, largely due to familial health issues, including a sister's chemotherapy and a brother's glioblastoma treatment. Blood pressure variations have been noted, though unrelated to recent weight changes. Her medical background includes former smoker status, chronic kidney disease stage III, atrial fibrillation, essential hypertension, morbid obesity, and obstructive sleep apnea. Currently, she consistently monitors her blood pressure at home. Review of Systems PHQ Score Initial Depression Screen Score: 0 SCORE Physical Exam Vitals & Measurements T: 36.8 ???C(Tympanic) HR: 68(Peripheral) RR: 18 BP: 149/94 SpO2: 98% HT: 163 cm HT: 64 in WT: 112 kg WT: 246.917 lb BMI: 42.15 General: alert, no acute distress ENMT: oral mucosa moist Cardiovascular: Regular rate and rhythm, normal peripheral perfusion Respiratory: Lungs clear to auscultation, respirations non labored Extremities: no deformity, no trauma Neurological: oriented x 4, level of consciousness appropriate for age, CN II-XII intact, motor strength equal & normal bilaterally, speech normal Abdomen: Soft, Non-tender, Non-distended, + Bowel sounds Assessment/Plan 1. Atrial fibrillation (I48.91: Unspecified atrial fibrillation) Stable on current anticoagulation. No changes needed. Ordered: Body Mass Index (BMI) documented 3008F Current tobacco non-user 1036F Depression Screening Negative 3352F Discharge medications reconciled with current medications in outpatient record 1111F Influenza immunization status assessed 1030F Medication list documented in medical record 1159F Most recent diastolic blood pressure >=90 mm Hg 3080F Most recent systolic blood pressure >= 140 mm Hg 3077F Patient screen for fall risk: no falls in last year or 1 fall with no injury in last year 1101F Review of all meds by a prescribing practitioner or clinical pharmacist documented in EHR 1160F 2. BMI 40.0-44.9, adult (Z68.41: Body mass index [BMI] 40.0-44.9, adult) Education added. 3. CKD (chronic kidney disease), stage III (N18.30: Chronic kidney disease, stage 3 unspecified) Routine monitoring without new interventions. 4. Morbid obesity, (E66.01: Morbid (severe) obesity due to excess calories)Obesity, morbid, BMI 40.0-49.9 Monitor weight, continue lifestyle interventions. 5. Hypertension (I10: Essential (primary) hypertension) Ongoing home monitoring of blood pressure with return visit if readings are consistently elevated. 6. CHANDA (obstructive sleep apnea) (G47.33: Obstructive sleep apnea (adult) (pediatric)) Monitor symptoms, stabilize current management. 7. Former smoker (Z87.891: Personal history of nicotine dependence) Reinforce continuation of non-smoking behavior. 69 year old female with history of atrial fibrillation, essential hypertension, chronic kidney disease stage III, morbid obesity, and obstructive sleep apnea, presenting with concerns of elevated blood pressure readings likely exacerbated by stress. The patient needs ongoing monitoring of her blood pressure due to the influence of familial stress and her comorbid profile. During the visit, we discussed the patient's elevated blood pressure readings and their potential connection to recent stress factors within her family. We agreed on the importance of monitoring her blood pressure at home, with the understanding that she would seek another evaluation if certain thresholds were met. There was a brief discussion about her current medications, particularly the continuation of Eliquis for atrial fibrillation. Additionally, the impact of stress on her health was acknowledged, with a recommendation to maintain her current lifestyle and dietary efforts. No immediate adjustments to medication were deemed necessary, and the patient was advised to follow up for further evaluation if needed. Patient will take her blood pressure 3 times a day and check to see if blood pressure is elevated at home. If blood pressure is elevated at home we will adjust medication. Follow-up No qualifying data available Patient Education BMI for Adults Problem List/Past Medical History Ongoing Atrial fibrillation Benign hypertension with chronic kidney disease, stage III BMI 40.0-44.9, adult CKD (chronic kidney disease), stage III Former smoker Hypertension Morbid obesity Obesity, morbid, BMI 40.0-49.9 CHANDA (obstructive sleep apnea) Historical No qualifying data Procedure/Surgical Hi (more content not included)... [facility] Comment on above: Result Comment: Elec tronically Signed By: Milan PEPPER, Gopal Thompson\.ángel\Date and Time Signed: 02/15/25 13:13 EDT Heart and Vascular Office/Cl inic Noteon 09-15-2024 Heart and Vascular Office/Clinic Note Heart and Vascular Office/Clinic Note Chief Complaint 1 mo f/u afib, htn History of Present Illness Patient is a 69-year-old female with past medical history of paroxysmal atrial fibrillation, CKD, hypertension, CHANDA. Patient does not have any heart testing completed within the past 5 years per our records. Patient comes in from 1 month follow-up today. At last visit, patient saw Dr. Hdz at which time she was started on losartan 25 mg daily and was ordered a BNP to get prior to appointment today. The patient did get BMP that was ordered which showed a normal BUN, mildly elevated creatinine at 1.14 and mildly decreased GFR of 47. Labs from 07/2024 showed BUN was normal, creatinine was 1.01 and GFR was 54. Patient has been up-to-date compliant with losartan 25 mg and will start at last visit in addition to bisoprolol/hydrochlorot hiazide 5/1.25 mg daily. Patient reports that she is tolerating losartan well and she has checked blood her blood pressure a few times at home and it has been well-controlled there. Patient reports that she does not feel when she is in A-fib, but does not believe she has gone into A-fib since last visit. She is compliant with Eliquis 5 mg daily as well for anticoagulation in addition to the bisoprolol. Patient denies chest pain, shortness of breath, heart palpitations, dizziness/lightheadedne ss, and swelling in lower legs. Review of Systems PHQ Score Initial Depression Screen Score: 0 SCORE ROS - Provider Constitutional: no fever, no chills, no sweats, no weakness Respiratory: no shortness of breath, no cough Cardiovascular: no chest pain Neuro: no dizziness. no loss of consciousness Physical Exam Vitals & Measurements HR: 70(Peripheral) RR: 16 BP: 126/84 SpO2: 99% HT: 64 in HT: 163 cm WT: 111.2 kg WT: 245.154 lb BMI: 41.85 General: alert, no acute distress Cardiovascular: regular rate and rhythm, no murmur normal peripheral perfusion Respiratory: Lungs CTAB, respirations non labored Extremities: no edema left lower extremity. no edema right lower extremity Neurological: oriented x 4, LOC appropriate for age, speech normal Skin: Warm, dry, intact- no rash or concerning lesions Cardiac Diagnostics Assessment/Plan 1. Atrial fibrillation (I48.91: Unspecified atrial fibrillation) Patient has a history of A-fib. She is compliant with Eliquis 5 mg twice daily and bisoprolol and a combo of bisoprolol-hydrochlorot hiazide 5 mg - 6.25 mg daily. No recent issues at all. Continue with current medications 2. Benign hypertension with chronic kidney disease, stage III (I12.9: Hypertensive chronic kidney disease with stage 1 through stage 4 chronic kidney disease, or unspecified chronic kidney disease) Patient has hypertension that is well-controlled in the office today. Patient is compliant with new medication of losartan 25 mg daily in addition to her bisoprolol-hydrochlorot hiazide 5-6.25 mg daily. Her blood pressure has been well-controlled at home as well and her kidneys appear to be tolerating the losartan pretty well. Need to continue to keep an eye on her kidneys. Continue with current blood pressure medications listed above though. Chronic kidney disease, stage 3 unspecified (N18.30: Chronic kidney disease, stage 3 unspecified) Orders: losartan, 25 mg = 1 tab(s), Oral, Daily, # 90 tab(s), Refills(s) 3, Pharmacy: [facility], 163, cm, 09/15/24 9:07:00 EST, Height/Length Dosing, 111.2, kg, 09/15/24 9:07:00 EST, Weight Dosing losartan, 25 mg = 1 tab(s), Oral, Daily, # 30 tab(s), Refills(s) 3, Pharmacy: [facility], 163, cm, 08/13/24 13:04:00 EDT, Height/Length Dosing, 111.4, kg, 08/13/24 13:04:00 EDT, Weight Dosing Follow-up as scheduled in [address] Hdz Portions of this record may have been created with voice recognition artificial intelligence software, specifically [employer], [employer] and or [employer]. Substitutions may have occurred due to the inherent limitations of voice recognition and artificial intelligence software. Follow-up No qualifying data available Problem List/Past Medical History Ongoing Atrial fibrillation Benign hypertension with chronic kidney disease, stage III BMI 40.0-44.9, adult CKD (chronic kidney disease), stage III Hypertension Morbid obesity CHANDA (obstructive sleep apnea) Historical No qualifying data Procedure/Surgical History Colonoscopy (08/23/2021), Mammogram (07/06/2021), Cataract (11/03/2020), Breast reduction. Medications atorvastatin 10 mg Tab, 10 mg= 1 tab(s), Oral, Daily, 1 refills bisoprolol-hydrochlorot hiazide 5 mg-6.25 mg Tab, 1 tab(s), Oral, Daily, 1 refills Chondroitin-Glucosamine , 1 cap(s), Oral, BID Eliquis 5 mg oral tablet, See Instructions, 1 refills losartan 25 mg Tab, 25 mg= 1 tab(s), Oral, Daily, 3 refills Multi Vitamin+, 1, Daily Zyrtec, 10 mg, Daily Allergies penicillin (Rash) Social History Alcohol Never., 08/17/2024 Substance Abuse - Denies Substance A (more content not included)... [facility] Comment on above: Result Comment: Elec tronically Signed By: Mikayla AVINA, Kirit Shepherd\.br\Date and Time Signed: 09/15/24 09:22 EST Ambulatory Visit Summaryon 1 Ambulatory Visit Summary Ambulatory Visit Summary GRICEL LOZA :1955 Visit Date:08/17/2024 Ambulatory Visit Instructions Your Diagnosis Atrial fibrillation Hypertension Benign hypertension with chronic kidney disease, stage III CKD (chronic kidney disease), stage III Morbid obesity with body mass index (BMI) of 40.0 to 44.9 in adult Former smoker Obstructive sleep apnea (adult) (pediatric) BMI 40.0-44.9, adult Your Care Team Attending Physician - Milan PEPPERGopal Primary Care Physician - Gopal Yates MD This Is Your Medications List apixaban (Eliquis 5 mg oral tablet) atorvastatin (atorvastatin 10 mg Tab) bisoprolol-hydrochlorot hiazide (bisoprolol-hydrochloro thiazide 5 mg-6.25 mg Tab) Contact prescribing physician if questions or concerns cetirizine (Zyrtec) chondroitin-glucosamine (Chondroitin-Glucosamin e) losartan (losartan 25 mg Tab) multivitamin (Multi Vitamin+) Procedures Performed Colonoscopy (08/23/2021), Mammogram (07/06/2021), Cataract (11/03/2020), Breast reduction. Discharge Vitals Temperature (Temporal Artery) 36.6 ?C Heart Rate (Peripheral) 90 Respiratory Rate 16 Blood Pressure 132/82 Height 64 in Height 163 cm Weight 246.84 lb Weight 112.2 kg BMI 42.23 What to do next Scheduled Follow-Up Appointments Friday 9:15 AM EST With: Kirit Degroot PA-C Where: [facility] Friday 1:00 PM EDT With: Gopal Yates MD Where: [address] [address]- 2024 8:00 AM EDT With: Where: [address] [address]- 2024 8:45 AM EDT With: Gopal Yates MD Where: [address] [address]- Medications What How Much When Instructions Unchanged apixaban (Eliquis 5 mg oral tablet) See instructions TAKE 1 TABLET BY MOUTH TWICE DAILY Pickup at [facility] Unchanged atorvastatin (atorvastatin 10 mg Tab) 1 Tablets By Mouth Every day Pickup at [facility] Unchanged bisoprolol-hydrochlorot hiazide (bisoprolol-hydrochloro thiazide 5 mg-6.25 mg Tab) 1 Tablets By Mouth Every day Pickup at [facility] Unchanged cetirizine (Zyrtec) 10 Milligram Every day Contact prescribing physician if questions or concerns Unchanged chondroitin-glucosamine (Chondroitin-Glucosamin e) 1 Capsules By Mouth 2 times a day Contact prescribing physician if questions or concerns Unchanged losartan (losartan 25 mg Tab) 1 Tablets By Mouth Every day Contact prescribing physician if questions or concerns Unchanged multivitamin (Multi Vitamin+) 1 Every day Contact prescribing physician if questions or concerns Pharmacy Information [facility]: [address] [facility] [address] [place], [place] [id number] [phone] Allergies penicillin (Rash) Problems Ongoing - Any problem that you are currently receiving treatment for. Atrial fibrillation Benign hypertension with chronic kidney disease, stage III BMI 40.0-44.9, adult CKD (chronic kidney disease), stage III Hypertension Morbid obesity CHANDA (obstructive sleep apnea) Patient Survey You may receive a survey via text or e-mail asking about your office visit. Please share your experience with us by completing your survey. We appreciate your feedback and thank you for choosing us for your care. [facility] Family Medicine Office/Clini c Noteon 08-17-2024 Family Medicine Office/Clinic Note Family Medicine Office/Clinic Note Chief Complaint Patient presents for evaluation of high blood pressure management. HPI Staff Gricel is a 69 year old female presenting for follow up htn, CKD, a fib and meds check Labs done 07/17/24 in the documents Patient is here for follow up on hypertension. How often are you checking your blood pressure? daily What are your average readings? 130-140/70-85 _ Yearly BMP: 07/20/24 [facility] questions/concerns: needs all meds except losartan refilled History of Present Illness The patient is a 69-year-old female presenting with concerns regarding her blood pressure management. The patient reports a history of essential hypertension, previously managed with multiple antihypertensive medications including bisoprolol fumarate and hydrochlorothiazide. Recently, losartan was added to her regimen, a decision made due to persistent elevated blood pressure readings. Initially, the patient's blood pressure was noted at 160 mmHg during an examination by Dr. Calderon, leading to the adjustment in her treatment plan about one week prior to this visit. Following the addition of losartan, the patient has been monitoring her blood pressure daily, reporting consistent readings in the 120s, though she mentions a single reading of 99 mmHg, which she attributes to a potential fluke. The patient denies experiencing any symptoms associated with her atrial fibrillation diagnosis, as there have been no episodes of racing heart or palpitations. She acknowledges her condition was initially discovered following a stroke, leading to the insertion of a loop recorder which confirmed the atrial fibrillation diagnosis. The patient adheres to her CPAP treatment regimen nightly for management of obstructive sleep apnea, using the device for a minimum of six hours per night. Review of Systems PHQ Score Initial Depression Screen Score: 0 SCORE - Cardiovascular: Reports using daily blood pressure monitoring. - Respiratory: Reports adherence to CPAP therapy. - Musculoskeletal: Denies experiencing any muscle weakness or joint pain. - Neurological: Denies feeling different or experiencing palpitations. Physical Exam Vitals & Measurements T: 36.6 ?C(Temporal Artery) HR: 90(Peripheral) RR: 16 BP: 132/82 SpO2: 97% HT: 64 in HT: 163 cm WT: 112.2 kg WT: 246.84 lb BMI: 42.23 General: alert, no acute distress ENMT: oral mucosa moist Cardiovascular: Regular rate and rhythm, normal peripheral perfusion Respiratory: Lungs clear to auscultation, respirations non labored Extremities: no deformity, no trauma Neurological: oriented x 4, level of consciousness appropriate for age, CN II-XII intact, motor strength equal & normal bilaterally, speech normal Abdomen: Soft, Non-tender, Non-distended, + Bowel sounds Assessment/Plan 1. Atrial fibrillation (I48.91: Unspecified atrial fibrillation) Although the patient has been diagnosed with atrial fibrillation, she does not report any symptomatic episodes currently. Continuous monitoring through the loop recorder remains crucial. The patient's heart rhythm remains stable as observed during the encounter. Regular evaluations are intended to assess the necessity for any alterations in her management plan. Ordered: Body Mass Index (BMI) documented 3008F Current tobacco non-user 1036F Depression Screening Negative 3352F Most recent diastolic blood pressure >=90 mm Hg 3080F Most recent systolic blood pressure >= 140 mm Hg 3077F Patient screen for fall risk: no falls in last year or 1 fall with no injury in last year 1101F 2. Hypertension (I10: Essential (primary) hypertension) The patient?s essential hypertension is currently being managed with a combination of antihypertensive medications, including losartan recently prescribed due to elevated blood pressure readings during her last examination. She reports daily monitoring with improved readings, although she acknowledges a single atypical low reading, suggesting the need for ongoing monitoring. The strategy involves maintaining her current regimen with adjustments as clinically indicated based on her daily monitoring results and periodic re-evaluations by healthcare professionals. Ordered: Body Mass Index (BMI) documented 3008F Current tobacco non-user 1036F Depression Screening Negative 3352F Most recent diastolic blood pressure >=90 mm Hg 3080F Most recent systolic blood pressure >= 140 mm Hg 3077F Patient screen for fall risk: no falls in last year or 1 fall with no injury in last year 1101F 3. Benign hypertension with chronic kidney disease, stage III (I12.9: Hypertensive chronic kidney disease with stage 1 through stage 4 chronic kidney disease, or unspecified chronic kidney disease) Stable. No issues at this time. Ordered: Body Mass Index (BMI) documented 3008F Current tobacco non-user 1036F Depression Screening Negative 3352F Most recent diastolic blood pressure >=90 mm Hg 3080F Most recent systolic blood p (more content not included)... Normal [facility] Comment on above: Result Comment: Elec tronically Signed By: Milan PEPPER, Gopal Thompson\.br\Date and Time Signed: 08/17/24 14:23 EDT Heart and Vascular Office/Cl inic Noteon 08-13-2024 Heart and Vascular Office/Clinic Note Heart and Vascular Office/Clinic Note Chief Complaint here to establish care History of Present Illness Gricel is a pleasant 69-year-old female with past medical history of chronic kidney disease, paroxysmal atrial fibrillation on Eliquis, hypertension, CHANDA, who presents for establishment. She used to follow with primary care in [place], Reports no symptoms. Review of Systems ROS - Provider Constitutional: no fever, no chills, no fatigue Skin:no rash, no lesions ENMT: no ear pain, no sore throat, no congestion. Respiratory: no shortness of breath, no cough, no wheezing. Cardiovascular: no chest pain, no palpitations, no edema. Gastrointestinal: no nausea, no vomiting, no diarrhea, no GI bleeding. Genitourinary: no dysuria, no frequencyno hematuria Musculoskeletal: no back pain, no trauma. Neurologic: no headache, no dizziness, no numbness, no weakness. Psychiatric: no sleeping problems, no irritability, no mood swings/depression. Heme/Lymph: no bleeding tendency, no bruising tendency, no petechiae, Allergy/Immuno logic: no seasonal allergies, no food allergies, no recurrent infections Physical Exam Vitals & Measurements HR: 95(Peripheral) RR: 16 BP: 160/100 SpO2: 96% HT: 64 in HT: 163 cm WT: 111.4 kg WT: 245.08 lb BMI: 41.93 General: alert, no acute distress Neck: Supple, noJVD nocarotid bruit Cardiovascular: regular rate and rhythm, no murmur normal peripheral perfusion Respiratory: Lungs CTAB, respirations non labored Extremities: no edema left lower extremity. no edema right lower extremity Neurological: oriented x 4, LOC appropriate for age, speech normal Skin: Warm, dry, intact- no rash or concerning lesions Procedure ECG demonstrates sinus rhythm at 76 bpm with borderline left axis deviation Assessment/Plan 1. Afib (I48.91: Unspecified atrial fibrillation) Paroxysmal atrial fibrillation, the patient is in normal sinus rhythm. Continue Eliquis. Will request prior records Ordered: ECG 12 Lead Adult 2. Hypertension (I10: Essential (primary) hypertension) Blood pressure is elevated. I am going to start losartan 25 mg daily. BMP in 10 days. The patient may need an appointment for a blood pressure recheck after initiation of losartan, in about a month or so. Follow-up No qualifying data available 1 year Problem List/Past Medical History Ongoing Atrial fibrillation BMI 40.0-44.9, adult CKD (chronic kidney disease), stage III Hypertension CHANDA (obstructive sleep apnea) Historical No qualifying data Procedure/Surgical History Colonoscopy (08/23/2021), Mammogram (07/06/2021), Cataract (11/03/2020), Breast reduction. Medications atorvastatin 10 mg Tab, 10 mg= 1 tab(s), Oral, Daily, 4 refills bisoprolol-hydrochlorot hiazide 5 mg-6.25 mg Tab, 1 tab(s), Oral, Daily, 4 refills Chondroitin-Glucosamine , 1 cap(s), Oral, BID Eliquis 5 mg oral tablet, See Instructions Multi Vitamin+, 1, Daily Zyrtec, 10 mg, Daily Allergies penicillin (Rash) Social History Alcohol Beer, Wine, Liquor, 3-5 times per week, 2 drinks/episode average. 2.00 drinks/episode maximum. Alcohol use interferes with work or home: No. Drinks more than intended: No. Others hurt by drinking: No. Ready to change: No. Household alcohol concerns: No., 07/19/2024 Substance Abuse - Denies Substance Abuse, 07/19/2024 Tobacco - No Risk, 04/29/2023 Former smoker, quit more than 30 days ago Tobacco Use:. Never Smokeless Tobacco Use:. Cigarettes, Started age 20.0 Years. Stopped age 33 Years. Household tobacco concerns: No., 08/13/2024 Family History Breast cancer: Sister. Leukemia: Sister. Uterine cancer: Sister. Immunizations Vaccine Date Status Comments influenza virus vaccine, inactivated - Not Given Postpone due to refusal patient will get around August influenza virus vaccine, inactivated 07/20/2023 Recorded SARS-CoV-2 (COVID-19) [id number] 08/02/2022 Recorded 2023-06-27: TPV65 SARSCoV2 mRNA(podvvctyf-geyx-joe ros) vac 02/05/2022 Recorded influenza virus vaccine, inactivated 08/21/2021 Recorded SARS-CoV-2 (COVID-19) mRNA BNT-162b2 vax 07/31/2021 Recorded SARS-CoV-2 (COVID-19) mRNA BNT-162b2 vax 01/23/2021 Recorded SARS-CoV-2 (COVID-19) mRNA BNT-162b2 vax 01/01/2021 Recorded zoster vaccine, inactivated 09/08/2020 Recorded influenza virus vaccine, inactivated 08/10/2020 Recorded zoster vaccine, inactivated 05/19/2020 Recorded pneumococcal 23-valent vaccine 07/23/2019 Recorded influenza virus vaccine, inactivated 07/23/2019 Recorded pneumococcal 13-valent vaccine 07/29/2018 Recorded influenza virus vaccine, inactivated 07/29/2018 Recorded influenza virus vaccine, inactivated 08/21/2017 Recorded influenza virus vaccine, inactivated 07/30/2016 Recorded influenza virus vaccine, inactivated 08/08/2015 Recorded zoster vaccine live 04/20/2014 Recorded influenza virus vaccine, inactivated 07/29/2013 Recorded Normal [facility] Comment on above: Result Comment: Elec tronically Signed By: Andreina PEPPER, Roger Hicks\.br\Date and Time Signed: 08/13/24 13:23 EDT CBC AUTO DIFFon 07-10-2022 BASO # 0.1 103/ul Normal 0.0-0.1 [facility] Comment on above: Performed By: #### C BC #### [facility] [address] [place] [address] Dr. Aquilino Wilson Basophils/100 WBC (Bld) 0.7 % Normal 0.2-2.0 [facility] Comment on above: Performed By: #### C BC #### [facility] [address] [place] [address] Dr. Aquilino Wilson EO # 0.1 103/ul Normal 0.0-0.7 [facility] Comment on above: Performed By: #### C BC #### [facility] [address] [place] [address] Dr. Aquilino Wilson Eosinophils/100 WBC (Bld) 1.6 % Normal 0.9-7.0 [facility] Comment on above: Performed By: #### C BC #### [facility] [address] [place] [address] Dr. Aquilino Wilson Erythrocyte distribution width (RBC) [Ratio] 12.8 % Normal 11.0-15.0 [facility] Comment on above: Performed By: #### C BC #### [facility] [address] [place] [address] Dr. Aquilino Wilson Hematocrit (Bld) [Volume fraction] 42.7 % Normal 36.0-48.0 [facility] Comment on above: Performed By: #### C BC #### [facility] [address] [place] [address] Dr. Aquilino Wilson Hemoglobin (Bld) [Mass/Vol] 13.8 g/dL Normal 12.0-16.0 [facility] Comment on above: Performed By: #### C BC #### [facility] [address] [place] [address] Dr. Aquilino Wilson IG # 0.01 10e3/ul Normal 0.00-0.03 [facility] Comment on above: Performed By: #### C BC #### [facility] [address] [place] [address] Dr. Aquilino Wilson IG % 0.1 % Normal 0.0-0.5 [facility] Comment on above: Performed By: #### C BC #### [facility] [address] [place] [address] Dr. Aquilino Wilson LYMPH # 3.2 103/ul Normal 1.2-3.8 [facility] Comment on above: Performed By: #### C BC #### [facility] [address] [place] [address] Dr. Aquilino Wilson Lymphocytes/100 WBC (Bld) 47.2 % Normal 20.5-60.0 [facility] Comment on above: Performed By: #### C BC #### [facility] [address] [place] [address] Dr. Aquilino Wilson MANUAL DIFF REQ NO Normal [facility] Comment on above: Performed By: #### C BC #### [facility] [address] [place] [address] Dr. Aquilino Wilson MCH (RBC) [Entitic mass] 30.7 pg Normal 26.7-34.0 [facility] Comment on above: Performed By: #### C BC #### [facility] [address] [place] [address] Dr. Aquilino Wilson MCHC (RBC) [Mass/Vol] 32.3 g/dL Normal 29.9-35.2 [facility] Comment on above: Performed By: #### C BC #### [facility] [address] [place] [address] Dr. Aquilino Wilson MCV (RBC) [Entitic vol] 94.9 fL Normal 81.0-99.0 [facility] Comment on above: Performed By: #### C BC #### [facility] [address] [place] [address] Dr. Aquilino Wilson MONO # 0.6 103/ul Normal 0.3-0.8 [facility] Comment on above: Performed By: #### C BC #### [facility] [address] [place] [address] Dr. Aquilino Wilson Monocytes/100 WBC (Bld) 8.5 % Normal 1.7-12.0 [facility] Comment on above: Performed By: #### C BC #### [facility] [address] [address] [address] Aquilino Wilson NEUT # 2.9 103/ul Normal 1.4-6.5 [facility] Comment on above: Performed By: #### C BC #### [facility] [address] [address] [address] Aquilino Wilson Neutrophils/100 WBC (Bld) 41.9 % Critically low 43.0-75.0 [facility] Comment on above: Performed By: #### C BC #### [facility] [address] [place] [address] Dr. Aquilino Wilson Platelet mean volume (Bld) [Entitic vol] 12.1 fL Normal 9.5-13.5 [facility] Comment on above: Performed By: #### C BC #### [facility] [address] [place] [address] Dr. Aquilino Wilson PLT 215 103/ul Normal 150-450 [facility] Comment on above: Performed By: #### C BC #### [facility] [address] [place] [address] Dr. Aquilino Wilson RBC 4.50 106/ul Normal 4.20-5.40 [facility] Comment on above: Performed By: #### C BC #### [facility] [address] [place] [address] Dr. Aquilino Wilson WBC 6.8 103/ul Normal 4.0-11.0 [facility] Comment on above: Performed By: #### C BC #### [facility] [address] [place] [address] Dr. Aquilino Wilson LIPID PROFILEon 07-10-2022 CHOL-HDL RATIO NORM SEE BELOW Normal [facility] Comment on above: Result Comment: 3.3 - 4.4 LOW RISK 4.4 - 7.1 AVERAGE RISK 7.1 - 11.0 MODERATE RISK >11.0 HIGH RISK Performed By: #### M G, LIPID, CMP #### [facility] [address] [place] [address] Dr. Aquilino Wilson Cholesterol [Mass/Vol] 161 mg/dL Normal <=200 [facility] Comment on above: Performed By: #### M G, LIPID, CMP #### [facility] [address] [address] [address] Aquilino Wilson Cholesterol in HDL [Mass/Vol] 52 mg/dL Normal 40-60 [facility] Comment on above: Performed By: #### M G, LIPID, CMP #### [facility] [address] [address] [address] Aquilino Wilson Cholesterol in LDL [Mass/Vol] 86.6 mg/dL Normal [facility] Comment on above: Performed By: #### M G, LIPID, CMP #### [facility] [address] [place] [address] Dr. Aquilino Wilson Cholesterol.total /Cholesterol in HDL [Mass ratio] 3.1 {ratio} Normal [facility] Comment on above: Performed By: #### M G, LIPID, CMP #### [facility] [address] [address] [address] Aquilino Wilson HDL NORMAL > or = 60 mg/dl - LO W CARDIOVASCULAR RISK <40 mg/dl - HIGH CARDIOVASCULAR RISK Normal [facility] Comment on above: Performed By: #### M G, LIPID, CMP #### [facility] [address] [place] [address] Dr. Aquilino Wilson LDL CALC NORMAL SEE BELOW Normal [facility] Comment on above: Result Comment: <100 mg/dl OPTIMAL 100 - 129 mg/dl NEAR OR ABOVE OPTIMAL 130 - 159 mg/dl BORDERLINE HIGH 160 - 189 mg/dl HIGH >190 mg/dl VERY HIGH Performed By: #### M G, LIPID, CMP #### [facility] [address] [address] [address] Aquilino Wilson Triglyceride [Mass/Vol] 112 mg/dL Normal <=150 [facility] Comment on above: Performed By: #### M G, LIPID, CMP #### [facility] [address] [address] [address] Aquilino Wilson VLDL CALC 22.4 mg/dL Normal [facility] Comment on above: Performed By: #### M G, LIPID, CMP #### [facility] [address] [address] [address] Aquilino Wilson MAGNESIUMon 07-10-2022 Magnesium [Mass/Vol] 2.1 mg/dL Normal 1.8-2.4 [facility] Comment on above: Performed By: #### M G, LIPID, CMP #### [facility] [address] [address] [address] Aquilino Wilson PROF 14(COMP METB)on 022 Albumin [Mass/Vol] 3.9 g/dL Normal 3.4-5.0 [facility] Comment on above: Performed By: #### M G, LIPID, CMP #### [facility] [address] [place] [address] Dr. Aquilino Wilson Albumin/Globulin [Mass ratio] 1.1 {ratio} Normal [facility] Comment on above: Performed By: #### M G, LIPID, CMP #### [facility] [address] [place] [address] Dr. Aquilino Wilson ALP [Catalytic activity/Vol] 49 U/L Normal 46-116 [facility] Comment on above: Performed By: #### M G, LIPID, CMP #### [facility] [address] [place] [address] Dr. Aquilino Wilson ALT [Catalytic activity/Vol] 23 U/L Normal 14-59 [facility] Comment on above: Performed By: #### M G, LIPID, CMP #### [facility] [address] [address] [address] Aquilino Wilson Anion gap [Moles/Vol] 12.5 mmol/L Normal [facility] Comment on above: Performed By: #### M G, LIPID, CMP #### [facility] [address] [place] [address] Dr. Aquilino Wilson AST [Catalytic activity/Vol] 21 U/L Normal 15-37 [facility] Comment on above: Performed By: #### M G, LIPID, CMP #### [facility] [address] [place] [address] Dr. Aquilino Wilson Bilirubin [Mass/Vol] 0.3 mg/dL Normal 0.2-1.0 [facility] Comment on above: Performed By: #### M G, LIPID, CMP #### [facility] [address] [place] [address] Dr. Aquilino Wilson Calcium [Mass/Vol] 9.1 mg/dL Normal 8.5-10.1 [facility] Comment on above: Performed By: #### M G, LIPID, CMP #### [facility] [address] [place] [address] Dr. Aquilino Wilson Chloride [Moles/Vol] 102 mmol/L Normal 98-107 [facility] Comment on above: Performed By: #### M G, LIPID, CMP #### [facility] [address] [place] [address] Dr. Aquilino Wilson CO2 [Moles/Vol] 30.5 mmol/L Normal 21.0-32.0 [facility] Comment on above: Performed By: #### M G, LIPID, CMP #### [facility] [address] [place] [address] Dr. Aquilino Wilson Creatinine [Mass/Vol] 1.11 mg/dL Critically high 0.55-1.02 [facility] Comment on above: Performed By: #### M G, LIPID, CMP #### [facility] [address] [place] [address] Dr. Aquilino Wilson EGFR-AF SOUTH [place]FRICAN 59 mL/min/1.73m2 Critically low >=60 [facility] Comment on above: Performed By: #### M G, LIPID, CMP #### [facility] [address] [place] [address] Dr. Aquilino Wilson EGFR-NON AF [place]FR[place] 49 mL/min/1.73m2 Critically low >=60 [facility] Comment on above: Performed By: #### M G, LIPID, CMP #### [facility] [address] [place] [address] Dr. Aquilino Wilson Globulin (S) [Mass/Vol] 3.5 g/dL Normal [facility] Comment on above: Performed By: #### M G, LIPID, CMP #### [facility] [address] [address] [address] Aquilino Wilson Glucose [Mass/Vol] 106 mg/dL Normal 74-106 [facility] Comment on above: Performed By: #### M G, LIPID, CMP #### [facility] [address] [place] [address] Dr. Aquilino Wilson Potassium [Moles/Vol] 4.0 mmol/L Normal 3.5-5.1 [facility] Comment on above: Performed By: #### M G, LIPID, CMP #### [facility] [address] [address] [address] Aquilino Wilson Protein [Mass/Vol] 7.4 g/dL Normal 6.4-8.2 [facility] Comment on above: Performed By: #### M G, LIPID, CMP #### [facility] [address] [place] [address] Dr. Aquilino Wilson Sodium [Moles/Vol] 141 mmol/L Normal 136-145 [facility] Comment on above: Performed By: #### M G, LIPID, CMP #### [facility] [address] [address] [address] Aquilino Wilson Urea nitrogen [Mass/Vol] 14.0 mg/dL Normal 7.0-18.0 [facility] Comment on above: Performed By: #### M G, LIPID, CMP #### [facility] [address] [place] [address] Dr. Aquilino Wilson Urea nitrogen/Creatini ne [Mass ratio] 12.6 mg/mg Normal [facility] Comment on above: Performed By: #### M G, LIPID, CMP #### [facility] [address] [place] [address] Dr. Aquilino Wilson COVID-19 Antigenon 1 COVID-19 Antigen Healthcare Worker?: N Tiera Reference Tiera Reference Negative SARS-CoV+SARS-CoV-2 (COVID-19) Ag [Presence] in Respiratory specimen by Rapid immunoassay Negative for SARS Antigen by BEKAH COVID19 Blank Space -------- Tiera Disclaimer Negative results, from patients with symptom Tiera Disclaimer onset beyond five days, should be treated as Tiera Disclaimer presumptive and confirmation with a molecular Tiera Disclaimer assay, if necessary, for patient management, Tiera Disclaimer may be performed. Negative results do not rule Tiera Disclaimer out COVID-19 and should not be used as the sole Tiera Disclaimer basis for treatment or patient management Tiera Disclaimer decisions, including infection control decisions. Tiera Disclaimer Negative results should be considered in the Tiera Disclaimer context of a patient's recent exposures, history Tiera Disclaimer and the presence of clinical signs and symptoms Tiera Disclaimer consistent with COVID-19. COVID19 Blank Space -------- Tiera Disclaimer The Teira SARS Antigen BEKAH does not differentiate Tiera Disclaimer between SARS-CoV and SARS-CoV-2. COVID19 Blank Space -------- Tiera Disclaimer This test was developed and its performance Tiera Disclaimer characteristic determined by [employer] and Tiera Disclaimer validated at [facility]. This Tiera Disclaimer test has not been FDA cleared or approved. This Tiera Disclaimer test has been authorized by FDA under an Emergency Use Tiera Disclaimer Authorization (EUA). This test has been validated Tiera Disclaimer in accordance with the FDA's Guidance Document (Policy Tiera Disclaimer for Diagnostics Testing in Laboratories Certified to Tiera Disclaimer Perform High Complexity Testing under CLIA prior to Tiera Disclaimer Emergency Use Authorization for Coronavirus Tiera Disclaimer isease-2018 during the Public Health Emergency) Tiera Disclaimer issued on February 03, 2020. This test is only authorized Tiera Disclaimer for the duration of time the declaration that Tiera Disclaimer circumstances exist justifying the authorization of Tiera Disclaimer the emergency use of in vitro diagnostic tests for Tiera Disclaimer detection of SARS-CoV-2 virus and/or diagnosis of Tiera Disclaimer COVID-19 infection under section 564(b)(1) of the Tiera Disclaimer Act, 21 U.S.C. 360bbb-3(b)(1), unless the Tiera Disclaimer authorization is terminated or revoked sooner. PERFORMED BY: [place] [address] PATHOLOGIST [employer]IDENT[employer] APPR[employer]ISER CHRIS MIRELES M.D. Normal [facility] Comment on above: Performed By: #### C OVID-19 TIERA, SOFIANEG #### [place] [id number] [facility] Tiera Ag Negativeon 08-21-20 21 Tiera Ag Negative Negative Normal Negative [facility] Comment on above: Result Comment: This is a duplicate Tiera SARS Antigen (BEKAH) result to be used for statistical tracking purpose only. PERFORMED BY: [place] [address] PATHOLOGIST [employer]IDENTIAL [employer] APPRAISER CHRIS MIRELES M.D. Performed By: #### C OVID-19 TIERA, SOFIANEG #### [facility] [address] [place], [place] [id number] [facility] Vital Signs Date Time Vital Sign Value Performing Clinician Efe maddox 09-15-2024 09:01-0500 Blood Pressure Location Kirit Degroot [facility] 09-15-2024 09:01-0500 Diastolic blood pressure 84 mm[Hg] Kirit Degroot [facility] 09-15-2024 09:01-0500 Heart rate 70 /min Kirit Degroot [facility] 09-15-2024 09:01-0500 Respiratory rate 16 /min Kirit Degroot [facility] 09-15-2024 09:01-0500 SaO2% (BldA) [Mass fraction] 99 % Kirit Degroot [facility] 09-15-2024 09:01-0500 Systolic blood pressure 126 mm[Hg] Kirit Degroot [facility] 08-13-2024 12:56-0400 Diastolic blood pressure 100 mm[Hg] Roger Kirnus [facility] 08-13-2024 12:56-0400 Heart rate 95 /min Roger Kirnus [facility] 08-13-2024 12:56-0400 Respiratory rate 16 /min Roger Kirnus [facility] 08-13-2024 12:56-0400 SaO2% (BldA) [Mass fraction] 96 % Roger Kirnus [facility] 08-13-2024 12:56-0400 Systolic blood pressure 160 mm[Hg] Roger Kirnus [facility] Encounters Encounter Date Encounter Type Care Provider Facility Start: 07-24-2026 ambulatory Essence L Crescencio Facility: [facility] Start: 01-23-2026 ambulatory Essence L Crescencio Facility: [facility] Start: 08-02-2025 ambulatory Gopal Yates Facility :[facility] Start: 07-21-2025 End: 07-21-2025 ambulatory Essence L Crescencio Facility:[facility] Start: 07-21-2025 End: 07-21-2025 ambulatory Gopal Yates Facility:[facility] Start: 03-17-2025 End: 03-17-2025 ambulatory Gopal Yates Facility:[facility] Start: 02-15-2025 End: 02-15-2025 ambulatory Gopal Yates Facility:[facility] Start: 09-15-2024 End: 09-15-2024 ambulatory XXXX NONE Facility:[facility] Start: 09-15-2024 End: 09-15-2024 Patient encounter procedure Kirit Joao Mikayla [facility] Start: 08-17-2024 End: 08-17-2024 ambulatory Gopal Yates Facility:[facility] Start: 08-13-2024 End: 08-13-2024 ambulatory Roger Hdz Facility:[facility] Start: 08-13-2024 End: 08-13-2024 Patient encounter procedure Roger Hdz [facility] Start: 07-10-2022 End: 07-11-[address] MAURICE HELM Facility: Start: 10-22-2021 End: 10-23-[address] MAURICE HELM Facility:[facility] Start: 10-03-2021 End: 10-04-[address] MAURICE HELM Facility: Procedures Date Procedure Procedure Detail Performing Clinician Start: 08-23-2021 Colonoscopy Roger Muniz rnus Comment on above: normal Start: 07-06-2021 Mammography Roger Muniz rnus Start: 11-03-2020 Cataract (disorder) Sohan Martinezus Reduction mammoplasty Carissa Martinezus Comment on above: 2008 Immunizations Immunization Date Immunization Notes Care Provider Fa cility 07-20-2023 influenza virus vaccine, unspecified formulation Roger Martinezus [facility] 08-02-2022 SARS-CoV-2 (COVID-19 ) [id number] Roger Martinezus [facility] Comment on above: Result Comment: 2022: [id number] 02-05-2022 SARS-CoV-2 mRNA (lrzwebrpvnr-airv-dkkdh se) vaccine Roger Kirnus [facility] 08-21-2021 influenza virus vaccine, unspecified formulation Roger Kirnus [facility] 07-31-2021 SARS-CoV-2 (COVID-19 ) mRNA BNT-162b2 vax Roger Kirnus [facility] 01-23-2021 SARS-CoV-2 (COVID-19 ) mRNA BNT-162b2 vax Roger Kirnus [facility] 01-01-2021 SARS-CoV-2 (COVID-19 ) mRNA BNT-162b2 vax Roger Kirnus [facility] 09-08-2020 zoster vaccine recombinant Roger Kirnus [facility] 08-10-2020 influenza virus vaccine, unspecified formulation Roger Kirnus [facility] 05-19-2020 zoster vaccine recombinant Roger Kirnus [facility] 07-23-2019 influenza virus vaccine, unspecified formulation Roger Kirnus [facility] 07-23-2019 pneumococcal polysaccharide vaccine, 23 valent Roger Kirnus [facility] 07-29-2018 influenza virus vaccine, unspecified formulation Roger Kirnus [facility] 07-29-2018 pneumococcal conjuga te vaccine, 13 valent Roger Kirnus [facility] 08-21-2017 influenza virus vaccine, unspecified formulation Roger Kirnus [facility] 07-30-2016 influenza virus vaccine, unspecified formulation Roger Kirnus [facility] 08-08-2015 influenza virus vaccine, unspecified formulation Roger Kirnus [facility] 04-20-2014 zoster vaccine, live Roger Kirnus [facility] 07-29-2013 influenza virus vaccine, unspecified formulation Roger Kirnus [facility] NEGATED: Highlighted row has not occurred!07-19-2024 influenza virus vaccine, unspecified formulation Roger Kirnus [facility] Comment on above: Result Comment: elaine ent will get around August Payers Date Payer Category Payer Medicare [id number] 1961 Unknown [id number] 1955 Unknown [id number] 2.16.84 [id number] 1955 Unknown [id number] 2.16.84 [id number] 1955 Unknown [id number] 2.16.84 [id number] 1955 Unknown [id number] 2.16.8 40.1.041369.3.579.2.727 1955 Unknown 2.16.8 40.1.674154.3.579.2.727 1955 Unknown 2.16.8 40.1.101296.3.579.2.727 1955 Unknown 2.16.8 40.1.755657.3.579.2.727 1955 Unknown [id number] 2.16.8 40.1.153192.3.579.2.727 1955 Unknown [id number] 2.16.8 40.1.960413.3.579.2.727 1955 Unknown [id number] 2.16.8 40.1.641094.3.579.2.727 1955 Unknown [id number] 2.16.8 40.1.278568.3.579.2.727 1955 Unknown [id number] 2.16.8 40.1.745612.3.579.2.727 1955 Unknown [id number] 2.16.8 40.1.685013.3.579.2.727 1955 Unknown [id number] 2.16.8 40.1.112963.3.579.2.727 1955 Unknown [id number] 2.16.8 40.1.510084.3.579.2.727 1955 Unknown [id number] 2.16.8 40.1.200515.3.579.2.727 Medicare [id number] Social History Date Type Detail Facility Start: 08-13-2024 End: 09-15-2024 Tobacco smoking status Ex-smoker (finding) [facility] Comment on above: Patient is a former smoker. Stopped more than 20 years ago. Tobacco smoking status Never [facility] Comment on above: Patient is a former smoker. Stopped more than 20 years ago. Sex Assigned At Female [facility] Functional Status Date Assessment Result Facility 09-15-2024 Functional Status N/A [facility] 08-13-2024 Functional Status N/A [facility] Clinical Note 07-21-2025 Note Date & Type Note Facility 07-21-2025 Note Patient Education Cardiovascular Managing Your Hypertension Hypertension, also called high blood pressure, is when the force of the blood pressing against the rios of the arteries is too strong. Arteries are blood vessels that carry blood from your heart throughout your body. Hypertension forces the heart to work harder to pump blood and may cause the arteries to become narrow or stiff. Understanding blood pressure readings A blood pressure reading includes a higher number over a lower number: ??? The first, or top, number is called the systolic pressure. It is a measure of the pressure in your arteries as your heart beats. ??? The second, or bottom number, is called the diastolic pressure. It is a measure of the pressure in your arteries as the heart relaxes. For most people, a normal blood pressure is below 120/80. Your personal target blood pressure may vary depending on your medical conditions, your age, and other factors. Blood pressure is classified into four stages. Based on your blood pressure reading, your health care provider may use the following stages to determine what type of treatment you need, if any. Systolic pressure and diastolic pressure are measured in a unit called millimeters of mercury (mmHg). Normal ??? Systolic pressure: below 120. ??? Diastolic pressure: below 80. Elevated ??? Systolic pressure: 120?129. ??? Diastolic pressure: below 80. Hypertension stage 1 ??? Systolic pressure: 130?139. ??? Diastolic pressure: 80?89. Hypertension stage 2 ??? Systolic pressure: 140 or above. ??? Diastolic pressure: 90 or above. How can this condition affect me? Managing your hypertension is very important. Over time, hypertension can damage the arteries and decrease blood flow to parts of the body, including the brain, heart, and kidneys. Having untreated or uncontrolled hypertension can lead to: ??? A heart attack. ??? A stroke. ??? A weakened blood vessel (aneurysm). ??? Heart failure. ??? Kidney damage. ??? Eye damage. ??? Memory and concentration problems. ??? Vascular dementia. What actions can I take to manage this condition? Hypertension can be managed by making lifestyle changes and possibly by taking medicines. Your health care provider will help you make a plan to bring your blood pressure within a normal range. You may be referred for counseling on a healthy diet and physical activity. Nutrition ??? Eat a diet that is high in fiber and potassium, and low in salt (sodium), added sugar, and fat. An example eating plan is called the DASH diet. DASH stands for Dietary Approaches to Stop Hypertension. To eat this way: ? Eat plenty of fresh fruits and vegetables. Try to fill one-half of your plate at each meal with fruits and vegetables. ? Eat whole grains, such as whole-wheat pasta, brown rice, or whole-grain bread. Fill about one-fourth of your plate with whole grains. ? Eat low-fat dairy products. ? Avoid fatty cuts of meat, processed or cured meats, and poultry with skin. Fill about one-fourth of your plate with lean proteins such as fish, chicken without skin, beans, eggs, and tofu. ? Avoid pre-made and processed foods. These tend to be higher in sodium, added sugar, and fat. ??? Reduce your daily sodium intake. Many people with hypertension should eat less than 1,500 mg of sodium a day. Lifestyle ??? Work with your health care provider to maintain a healthy body weight or to lose weight. Ask what an ideal weight is for you. ??? Get at least 30 minutes of exercise that causes your heart to beat faster (aerobic exercise) most days of the week. Activities may include walking, swimming, or biking. ??? Include exercise to strengthen your muscles (resistance exercise), such as weight lifting, as part of your weekly exercise routine. Try to do these types of exercises for 30 minutes at least 3 days a week. ??? Do not use any products that contain nicotine or tobacco. These products include cigarettes, chewing tobacco, and vaping devices, such as e-cigarettes. If you need help quitting, ask your health care provider. ??? Control any long-term (chronic) conditions you have, such as high cholesterol or diabetes. ??? Identify your sources of stress and find ways to manage stress. This may include meditation, deep breathing, or making time for fun activities. Alcohol use ??? Do not drink alcohol if: ? Your health care provider tells you not to drink. ? You are , may be , or are planning to become . ??? If you drink alcohol: ? Limit how much you have to: ? 0?1 drink a day for women. ? 0?2 drinks a day for men. ? Know how much alcohol is in your drink. In the [place] one drink equals one 12 oz bottle of beer (355 mL), one 5 oz glass of wine (148 mL), or one 1? oz glass of hard liquor (44 mL). Medicines Your health care provider may prescribe medicine if lifestyle changes are not enough (more content not included)... [facility] Clinical Note 02-15-2025 Note Date & Type Note Facility 02-15-2025 Note Patient Education Nutrition BMI for Adults Body mass index (BMI) is a number found using a person's weight and height. BMI can help tell how much of a person's weight is made up of fat. BMI does not measure body fat directly. It is used instead of tests that directly measure body fat, which can be difficult and expensive. What are BMI measurements used for? BMI is useful to: ??? Find out if your weight puts you at higher risk for medical problems. ??? Help recommend changes, such as in diet and exercise. This can help you reach a healthy weight. BMI screening can be done again to see if these changes are working. How is BMI calculated? Your height and weight are measured. The BMI is found from those numbers. This can be done with [place] or metric measurements. Note that charts and online BMI calculators are available to help you find your BMI quickly and easily without doing these calculations. To calculate your BMI in [place] measurements: 1. Measure your weight in pounds (lb). 2. Multiply the number of pounds by 703. ??? So, for an adult who weighs 150 lb, multiply that number by 703: 150 x 703, which equals 105,450. 3. Measure your height in inches. Then multiply that number by itself to get a measurement called inches squared. ??? So, for an adult who is 70 inches tall, the inches squared measurement is 70 inches x 70 inches, which equals 4,900 inches squared. 4. Divide the total from step 2 (number of lb x 703) by the total from step 3 (inches squared): 105,450 ? 4,900 = 21.5. This is your BMI. To calculate your BMI in metric measurements: 1. Measure your weight in kilograms (kg). ??? For this example, the weight is 70 kg. 2. Measure your height in meters (m). Then multiply that number by itself to get a measurement called meters squared. ??? So, for an adult who is 1.75 m tall, the meters squared measurement is 1.75 m x 1.75 m, which equals 3.1 meters squared. 3. Divide the number of kilograms (your weight) by the meters squared number. In this example: 70 ? 3.1 = 22.6. This is your BMI. What do the results mean? BMI charts are used to see if you are underweight, normal weight, overweight, or obese. The following guidelines will be used: ??? Underweight: BMI less than 18.5. ??? Normal weight: BMI between 18.5 and 24.9. ??? Overweight: BMI between 25 and 29.9. ??? Obese: BMI of 30 or above. BMI is a tool and cannot diagnose a condition. Talk with your health care provider about what your BMI means for you. Keep these notes in mind: ??? Weight includes fat and muscle. Someone with a muscular build, such as an athlete, may have a BMI that is higher than 24.9. In cases like these, BMI is not a correct measure of body fat. ??? If you have a BMI of 25 or higher, your provider may need to do more testing to find out if excess body fat is the cause. ??? BMI is measured the same way for males and females. Females usually have more body fat than males of the same height and weight. Where to find more information For more information about BMI, including tools to quickly find your BMI, go to: ??? Centers for Disease Control and Prevention: cdc.gov ??? [place] [employer]: heart.org ??? National Heart, Lung, and Blood [place]: nhlbi.nih.gov This information is not intended to replace advice given to you by your health care provider. Make sure you discuss any questions you have with your health care provider. Document Revised: 07/10/2023 Document Reviewed: 07/03/2023 [employer] Patient Education ? 2023 [employer] [facility] Clinical Note 08-17-2024 Note Date & Type Note Facility 08-17-2024 Note Patient Education Nutrition BMI for Adults Body mass index (BMI) is a number found using a person's weight and height. BMI can help tell how much of a person's weight is made up of fat. BMI does not measure body fat directly. It is used instead of tests that directly measure body fat, which can be difficult and expensive. What are BMI measurements used for? BMI is useful to: ? Find out if your weight puts you at higher risk for medical problems. ? Help recommend changes, such as in diet and exercise. This can help you reach a healthy weight. BMI screening can be done again to see if these changes are working. How is BMI calculated? Your height and weight are measured. The BMI is found from those numbers. This can be done with U.S. or metric measurements. Note that charts and online BMI calculators are available to help you find your BMI quickly and easily without doing these calculations. To calculate your BMI in [place] measurements: 1. Measure your weight in pounds (lb). 2. Multiply the number of pounds by 703. ? So, for an adult who weighs 150 lb, multiply that number by 703: 150 x 703, which equals 105,450. 3. Measure your height in inches. Then multiply that number by itself to get a measurement called inches squared. ? So, for an adult who is 70 inches tall, the inches squared measurement is 70 inches x 70 inches, which equals 4,900 inches squared. 4. Divide the total from step 2 (number of lb x 703) by the total from step 3 (inches squared): 105,450 ? 4,900 = 21.5. This is your BMI. To calculate your BMI in metric measurements: 1. Measure your weight in kilograms (kg). ? For this example, the weight is 70 kg. 2. Measure your height in meters (m). Then multiply that number by itself to get a measurement called meters squared. ? So, for an adult who is 1.75 m tall, the meters squared measurement is 1.75 m x 1.75 m, which equals 3.1 meters squared. 3. Divide the number of kilograms (your weight) by the meters squared number. In this example: 70 ? 3.1 = 22.6. This is your BMI. What do the results mean? BMI charts are used to see if you are underweight, normal weight, overweight, or obese. The following guidelines will be used: ? Underweight: BMI less than 18.5. ? Normal weight: BMI between 18.5 and 24.9. ? Overweight: BMI between 25 and 29.9. ? Obese: BMI of 30 or above. BMI is a tool and cannot diagnose a condition. Talk with your health care provider about what your BMI means for you. Keep these notes in mind: ? Weight includes fat and muscle. Someone with a muscular build, such as an athlete, may have a BMI that is higher than 24.9. In cases like these, BMI is not a correct measure of body fat. ? If you have a BMI of 25 or higher, your provider may need to do more testing to find out if excess body fat is the cause. ? BMI is measured the same way for males and females. Females usually have more body fat than males of the same height and weight. Where to find more information For more information about BMI, including tools to quickly find your BMI, go to: ? Centers for Disease Control and Prevention: cdc.gov ? [place] Heart Association: heart.org ? National Heart, Lung, and Blood [place]: nhlbi.nih.gov This information is not intended to replace advice given to you by your health care provider. Make sure you discuss any questions you have with your health care provider. Document Revised: 07/10/2023 Document Reviewed: 07/03/2023 [employer] Patient Education ? 2023 [employer] [facility] Evaluation + Plan note Laboratory Note Date & Type Note Facility Evaluation + Plan note Future Appointments Appointment Date:08/17/2024 02:00:00 PM Scheduled Provider:Gopal Yates MD Location:[facility] Appointment Type: Open Appointment Date:09/15/2024 09:15:00 AM Scheduled Provider:Kirit Degroot PA-C [facility] Type:Cardiology Follow Up (FT) Appointment Date:07/21/2025 08:00:00 AM Scheduled Provider: Location:[facility] Appointment Type: Medicare Wellness Subsequent Appointment Date:07/21/2025 08:45:00 AM Scheduled Provider:Gopal Yates MD Location:[facility] Appointment Type: Open Future Scheduled TestsBasic Metabolic Panel 08/13/24 [facility] Evaluation + Plan note Laboratory Note Date & Type Note Facility Evaluation + Plan note Future Appointments Appointment Date:02/15/2025 01:00:00 PM Scheduled Provider:[facility] Type: Open Appointment Date:07/21/2025 08:00:00 AM Scheduled Provider: [facility] Type: Medicare Wellness Subsequent Appointment Date:07/21/2025 08:45:00 AM Scheduled Provider:Gopal Yates MD Location:[facility] Appointment Type: Open Future Scheduled TestsBasic Metabolic Panel 08/13/24 [facility] Hospital course Narrative Note Date & Type Note Facility Hospital course Narrative No data available for this section [facility] Hospital Discharge instructions Note Date & Type Note Facility Hospital Discharge instructions No data available for this section [facility] Progress note Note Date & Type Note Facility Progress note No data available for this section [facility] Summary Purpose Family History No Family History Records FoundNo Family History Records Found No data available for this section No data available for this section No Family History Records FoundNo Family History Records FoundNo Family History Records FoundNo Family History Records FoundNo Family History Records FoundNo Family History Records Found Advance Directives No Advanced Directives Records FoundNo Advanced Directives Records FoundNo Advanced Directives Records FoundNo Advanced Directives Records FoundNo Advanced Directives Records FoundNo Advanced Directives Records FoundNo Advanced Directives Records FoundNo Advanced Directives Records Found Additional Source Comments INFORMATION SOURCE (unrecogn ized section and content) DATE CREATED AUTHOR 08/27/2021 [facility] DATE CREATED AUTHOR AUTHOR'S ORGANIZ ATION 08/02/2022 [facility] DATE CREATED AUTHOR AUTHOR'S ORGANIZ ATION 07/23/2025 [facility] DATE CREATED AUTHOR AUTHOR'S ORGANIZ ATION 07/24/2025 [facility] Patient Care team informatio n (unrecognized section and content) Personnel Name: Gopal Yates MD Address: Address: [facility] [address] [place], [place] [address] Personnel Name: Ross MD, Gopal E. Address: Address: [address] [place], [place] [address] FOR RECORDS PERTAINING TO PATIENTS WHO ARE OR HAVE BEEN ENROLLED IN A CHEMICAL DEPENDENCY/SUBSTANCEABUSE PROGRAM, SOME INFORMATION MAY BE OMITTED. This clinical summary was aggregated from multiple sources. Caution should be exercised in using it in the provision of clinical care. This summary normalizes information from multiple sources, and as a consequence, information in this document may materially change the coding, format and clinical context of patient data. In addition, data may be omitted in some cases. CLINICAL DECISIONS SHOULD BE BASED ON THE PRIMARY CLINICAL RECORDS. [facility] [employer] [facility]. provides no warranty or guarantee of the accuracy or completeness of information in this document.
== END 2025-07-27 08:53 | disposition home or self-care (01) ==
LOC: MAMMO 08:52
PROVIDERS: PCP Nurse Practitioner; Visit Provider Nurse Practitioner
DX: E28.39 Other primary ovarian failure (principal); Z12.31 Encounter for screening mammogram for malignant neoplasm of breast; Z80.3 Family history of malignant neoplasm of breast
CPT/HCPCS: 77063; 77067; 77080